=== PATIENT | female | born 1975 | race Caucasian/White ===

== ENCOUNTER 2021-07-02 11:06 | Outpatient (REF) | payer OTHER, SELFPAY ==
[2021-07-02 14:00] LABS: MANUAL DIFF FLAG NO
[2021-07-02 14:10] LABS: Basophils Percent Auto 0.5 % (0-2); Eosinophils Absolute Auto 0.2 X10*3/uL (0.0-0.4); Eosinophils Percent Auto 3.1 % (0-4); Hematocrit 35.5 % (37.0-47.0); Imm Gran Abs Auto 0.01 X10*3/uL (0.00-0.03); Imm Gran Pct Auto 0.2 % (0.0-0.4); Lymphocytes Absolute Auto 1.3 X10*3/uL (1.2-4.9); Lymphocytes Percent Auto 20.8 % (20-40); Mean Corpuscular HGB Conc 33.8 g/dl (31.0-35.0); Mean Corpuscular Hemoglobin 31.2 pg (27.0-33.0); Mean Corpuscular Volume 92.2 fL (80.0-98.0); Mean Platelet Volume 10.6 fL (9.4-12.3); Monocytes Absolute Auto 0.7 X10*3/uL (0.1-1.2); Monocytes Percent Auto 11.3 % (2-11); Neutrophils Absolute Auto 3.9 x10*3/uL (2.0-8.3); Neutrophils Percent Auto 64.1 % (45-73); Platelet Count 201 X10*3/uL (160-400); Red Blood Count 3.85 X10*6/uL (4.20-5.50); White Blood Count 6.1 X10*3/uL (4.8-10.8)
[2021-07-02 14:26] LABS: Monotest Negative (Negative)
[2021-07-02 14:31] LABS: Alanine Aminotransferase 23 U/L (0-31); Alkaline Phosphatase 67 U/L (39-117); Anion Gap 13 (12-20); Aspartate Amino Transferase 24 U/L (5-31); Bilirubin Total 0.4 mg/dL (0.0-1.0); Blood Urea Nitrogen 7 mg/dL (9-16); C Reactive Protein 4.26 mg/dL (< or = 0.50); Calcium 9.3 mg/dL (8.4-10.2); Carbon Dioxide 23 mmol/L (22-29); Chloride 105 mmol/L (96-108); Estimated Glomerular Filt Rate > 60; Glucose Random 79 mg/dL (60-115); Potassium 4.3 mmol/L (3.3-5.1); Sodium 137 mmol/L (135-145); Total Protein 6.8 g/dL (6.5-8.0)
== END 2021-07-02 11:07 | disposition home or self-care (01) ==
LOC: HO.HMGCLDS 11:06
PROVIDERS: PCP Internal Medicine; Visit Provider Internal Medicine
DX: J02.9 Acute pharyngitis, unspecified (principal)
CPT/HCPCS: 36415; 80053; 85025; 86140; 86308

== ENCOUNTER → 2022-04-01 14:45 | Outpatient (REF) | payer OTHER, SELFPAY ==
--- NOTE | 2022-04-01 14:51 | HM_ITS ---
Conclusion: 1. Patient was monitored for total period of 3 days 2. Baseline was normal sinus rhythm with average heart of 77 beats per minute 3. Very rare ectopy noted 4. No significant pauses or bradycardia noted 5. No patient reported events MTDD
== END ==
LOC: HO.CARD 14:45
PROVIDERS: PCP Internal Medicine; Visit Provider Internal Medicine
DX: R00.2 Palpitations (principal)
CPT/HCPCS: 93242

== ENCOUNTER 2022-06-18 07:57 | Outpatient (REF) | payer OTHER, SELFPAY ==
[2022-06-18 08:14] LABS: MANUAL DIFF FLAG NO
[2022-06-18 08:54] LABS: Basophils Percent Auto 0.7 % (0-2); Eosinophils Absolute Auto 0.2 X10*3/uL (0.0-0.4); Eosinophils Percent Auto 3.4 % (0-4); Hematocrit 34.4 % (37.0-47.0); Hemoglobin 11.7 g/dl (12.0-16.0); Imm Gran Abs Auto 0.01 X10*3/uL (0.00-0.03); Imm Gran Pct Auto 0.2 % (0.0-0.4); Lymphocytes Absolute Auto 1.8 X10*3/uL (1.2-4.9); Lymphocytes Percent Auto 32.5 % (20-40); Mean Corpuscular Hemoglobin 30.2 pg (27.0-33.0); Mean Corpuscular Volume 88.9 fL (80.0-98.0); Mean Platelet Volume 10.3 fL (9.4-12.3); Monocytes Absolute Auto 0.5 X10*3/uL (0.1-1.2); Monocytes Percent Auto 8.2 % (2-11); Neutrophils Absolute Auto 3.1 x10*3/uL (2.0-8.3); Platelet Count 200 X10*3/uL (160-400); Red Blood Count 3.87 X10*6/uL (4.20-5.50); Red Cell Distribution Width 13.2 % (11.0-16.0); White Blood Count 5.6 X10*3/uL (4.8-10.8)
[2022-06-18 09:44] LABS: Alanine Aminotransferase 34 U/L (0-31); Albumin Level 4.4 g/dL (3.5-5.0); Alkaline Phosphatase 70 U/L (39-117); Anion Gap 13 (12-20); Aspartate Amino Transferase 25 U/L (5-31); Bilirubin Direct < 0.2 mg/dL (0.0-0.5); Bilirubin Total 0.3 mg/dL (0.0-1.0); Blood Urea Nitrogen 11 mg/dL (9-16); C Reactive Protein 1.09 mg/dL (< or = 0.50); Calcium 10.1 mg/dL (8.4-10.2); Carbon Dioxide 26 mmol/L (22-29); Chloride 103 mmol/L (96-108); Estimated Glomerular Filt Rate > 60; Glucose Random 89 mg/dL (60-115); Potassium 3.9 mmol/L (3.3-5.1); Sodium 138 mmol/L (135-145); T4 Thyroxine 6.2 ug/dL (4.5-12.0); Thyroid Stimulating Hormone 1.62 uIU/mL (0.32-4.0); Total Protein 7.1 g/dL (6.5-8.0)
[2022-06-18 09:48] LABS: Erythrocyte Sedimentation Rate 14 MM/HR (0-20)
[2022-06-19 13:23] LABS: Gliadin Deamidated IgA Ab <1.0 U/mL; Gliadin Deamidated IgG Ab <1.0 U/mL; Transglutaminase Ab IgG <1.0 U/mL; Transglutaminase IgA <1.0 U/mL
[2022-06-20 14:39] LABS: Immunoglobulin A 161 mg/dL (47-310)
[2022-06-21 11:24] LABS: Endomysial IgA Antibody Negative (Negative)
== END 2022-06-18 07:58 | disposition home or self-care (01) ==
LOC: HO.LAB 07:57
PROVIDERS: PCP Internal Medicine; Visit Provider Internal Medicine
DX: R19.7 Diarrhea, unspecified (principal)
CPT/HCPCS: 36415; 80048; 80076; 82784; 84436; 84443; 85025; 85652; 86140; 86231; 86258; 86364

== ENCOUNTER 2022-07-23 10:44 | Day surgery (SDC) | payer OTHER, SELFPAY ==
--- NOTE | 2022-07-22 12:09 | HO.ANESPROP2 ---
Documented by User: Soha Elizondo NP 07/22/22 12:10 HPI - Anesthesia Eval Consult details Narrative: 47yo F for Colonoscopy PMFSH Past Medical History Medical History Asthma GERD (gastroesophageal reflux disease) HTN (hypertension) IBS (irritable bowel syndrome) Kidney calculi Panic attack Surgical History Surgical History Hx of colonoscopy Hx of endoscopy Social History Social History Patient Tobacco Use Status: Current everyday Tobacco user Are you DNR?: No Advance Directives: No Advance Directives Information Provided: Yes Patient : No Meds Allergies Allergy/AdvReac Type Severity Reaction Status Date / Time No Known Allergies Allergy Verified 07/23/22 11:25 Home Medications Medication Instructions Recorded Confirmed Last Taken Type albuterol sulfate 90 mcg/actuation 2 inh inhalation Q4-6H PRN Wheezing 07/22/22 07/23/22 07/21/22 History aerosol inhaler atorvastatin 10 mg tablet 1 tab PO DAILY 07/22/22 07/22/22 07/22/22 History fluticasone propionate 100 2 inh inhalation BID 07/22/22 07/23/22 07/22/22 History mcg/actuation blister powder for inhalation (Flovent Diskus) hydrochlorothiazide 25 mg tablet 1 tab PO DAILY 07/22/22 07/22/22 07/20/22 History losartan 100 mg tablet 1 tab PO DAILY 07/22/22 07/22/22 07/22/22 History omeprazole 40 mg capsule,delayed 1 cap PO DAILY 07/22/22 07/22/22 07/22/22 History release propranolol 120 mg capsule,24 1 cap PO DAILY 07/22/22 07/22/22 07/22/22 History hr,extended release sertraline 50 mg tablet 1 tab PO DAILY 07/22/22 07/22/22 07/22/22 History Exam Exam Date and Time: July 22, 2022 1209 Pertinent Lab Results Pertinent Lab Results: Laboratory Tests 06/18/22 06/18/22 08:13 08:13 WBC 5.6 Hgb 11.7 L Hct 34.4 L Plt Count 200 Sodium 138 Potassium 3.9 Chloride 103 Carbon Dioxide 26 BUN 11 Creatinine 0.81 Narrative Narrative: 3 Day Holter 03/2022 Conclusion: 1. Patient was monitored for total period of 3 days 2. Baseline was normal sinus rhythm with average heart of 77 beats per minute 3. Very rare ectopy noted 4. No significant pauses or bradycardia noted 5. No patient reported events? Assessment and Plan Assessment Anesthesia Assessment: Chart Reviewed Documented by User: Sierra Ornelas MD 07/23/22 12:47 PMF Past Medical History Medical History Asthma GERD (gastroesophageal reflux disease) HTN (hypertension) IBS (irritable bowel syndrome) Kidney calculi Panic attack Functional capacity: independent ambulation Patient : No Family History Family history of problems with anesthesia: No Surgical History Surgical History Hx of colonoscopy Hx of endoscopy History of Problems with Anesthesia: No Social History Social History Patient Tobacco Use Status: Current everyday Tobacco user Are you DNR?: No Advance Directives: No Advance Directives Information Provided: Yes Patient : No Meds Allergies Allergy/AdvReac Type Severity Reaction Status Date / Time No Known Allergies Allergy Verified 07/23/22 11:25 Home Medications Medication Instructions Recorded Confirmed Last Taken Type albuterol sulfate 90 mcg/actuation 2 inh inhalation Q4-6H PRN Wheezing 07/22/22 07/23/22 07/21/22 History aerosol inhaler atorvastatin 10 mg tablet 1 tab PO DAILY 07/22/22 07/22/22 07/22/22 History fluticasone propionate 100 2 inh inhalation BID 07/22/22 07/23/22 07/22/22 History mcg/actuation blister powder for inhalation (Flovent Diskus) hydrochlorothiazide 25 mg tablet 1 tab PO DAILY 07/22/22 07/22/22 07/20/22 History losartan 100 mg tablet 1 tab PO DAILY 07/22/22 07/22/22 07/22/22 History omeprazole 40 mg capsule,delayed 1 cap PO DAILY 07/22/22 07/22/22 07/22/22 History release propranolol 120 mg capsule,24 1 cap PO DAILY 07/22/22 07/22/22 07/22/22 History hr,extended release sertraline 50 mg tablet 1 tab PO DAILY 07/22/22 07/22/22 07/22/22 History Exam Airway Mallampati Class: II TM Dist: >3cm Neck ROM: Full Heart: RRR Lungs: CTA Assessment and Plan Final Anesthetic Review Family History of Problems with Anesthesia: No History of Problems with Anesthesia: No ASA Class: II Final Preanesthetic Review: No Changes in Pt Med Stat, Meds/Allgs Chart Reviewed, Consent Obtained/Reviewed and Anes Risks/Benef Reviewed Patient Risk: Low Procedure Risk: Low Anesthetic Plan Anesthetic Plan: MAC: Disposition: Standard PACU
[2022-07-23 07:11] VITALS: BMI 30.9
[2022-07-23 11:08] VITALS: BP 153/62; PULSE 78; RESP 20; TEMP 35.8; O2SAT 97
[2022-07-23] MEDS: Lactated Ringers 1,000 ML 100 ML IVCONT (11:18)
[2022-07-23 11:20] LABS: UPreg QC Valid YES; Urine Pregnancy NEGATIVE (NEGATIVE)
--- NOTE | 2022-07-23 13:02 | PM.OP ---
Brief Operative Note Date of Service: 07/23/22 Pre-op diagnosis: Diarrhea Post-op diagnosis: other (Polyp, R/O Microscopic colitis) Procedure: Colonoscopy to the cecum and TI with biopsies Surgeon: Rao Jaeger Anesthesia: MAC Was an Conservation Planner used for this Procedure?: No Estimated blood loss (mL): 2.0 Pathology: other (A. Terminal ileum B. Ascending colon C. Proximal ascending colon polyp D. Descending colon) Condition: stable Disposition: PACU
[2022-07-23 13:07] VITALS: BP 113/65; PULSE 82; RESP 16; TEMP 36.7; O2SAT 98
[2022-07-23] MEDS: Acetaminophen 325 MG TABLET 650 MG PO (13:10)
--- NOTE | 2022-07-23 13:10 | HO.POSTANES ---
Post Anesthesia Evaluation Post Anesthesia Evaluation Vital Signs: Vital Signs Temp Pulse Resp BP Pulse Ox O2 Del Method 07/23/22 13:07 98.1 F 82 16 113/65 98 Room Air 07/23/22 11:08 96.4 F L 78 20 153/62 H 97 Room Air Anesthesia: Monitored Mental Status: Awake Pain Control: Satisfactory Nausea/Vomiting: None Hydration: Adequate Anesthesia-Related Issues: No Anes. Related Issues
[2022-07-23 13:36] VITALS: BP 153/83; PULSE 73; RESP 18; TEMP 36.7; O2SAT 96
--- NOTE | 2022-07-24 06:07 | OP_ITS ---
SURGEON: Rao Jaeger MD INDICATIONS: The patient presents for evaluation of chronic diarrhea. Full consent has been obtained from her for this, including risks of bleeding and perforation. PREOPERATIVE DIAGNOSIS: Chronic diarrhea. POSTOPERATIVE DIAGNOSIS: PROCEDURE PERFORMED: Colonoscopy to the cecum and terminal ileum with biopsies and biopsy and removal of polyp. ESTIMATED BLOOD LOSS: COMPLICATIONS: ANESTHESIA: Monitored anesthesia care. ASSISTANTS: SPECIMENS: POSTOPERATIVE DIAGNOSES: Chronic diarrhea, colon polyp, mild diverticulosis, small internal hemorrhoids, and submucosal lesion in the proximal ascending colon. DESCRIPTION OF PROCEDURE: The patient was placed in the left lateral decubitus position. The digital rectal exam revealed no abnormalities. The Olympus video pediatric colonoscope was entered into the rectum and advanced easily to the cecum. Once in the cecum I did identify normal-appearing cecal pouch with appendiceal orifice and a normal-appearing ileocecal valve. The terminal ileum was cannulated and appeared normal. Biopsies were obtained. There was no sign of any Crohn's disease nor other inflammation. The scope was withdrawn back in the colon. The entire cecum and ileocecal valve appeared normal. The scope was slowly withdrawn assessing all mucosal surfaces carefully. Preparation was excellent. In the very proximal ascending colon, opposite to the ileocecal valve, was an approximately 2 cm submucosal lesion. The overlying mucosa was very normal. It was somewhat mobile, but somewhat firm. It was not definitively a lipoma. There was no pillow sign when probed with a biopsy forceps. I did not bother obtaining biopsies given the very normal-appearing mucosa. In the mid-ascending colon was an approximately 5 mm polyp, which was biopsied and completely removed with a cold biopsy forceps. I did not visualize any other polyps, colitis, nor angiodysplasia. Random biopsies were obtained in the ascending and descending colon as well. There were occasional diverticulae noted in the sigmoid colon. In the rectum, scope was retroflexed visualizing some small internal hemorrhoids, but no other pathology. The rectal mucosa appeared normal. The scope was straightened and withdrawn from the patient. She tolerated the procedure well and was returned to the recovery area in stable condition. IMPRESSION: 1. Small colon polyp. 2. Rule out microscopic colitis. 3. Submucosal lesion in the proximal ascending colon. 4. Mild diverticulosis. 5. Internal hemorrhoids. PLAN: The results of the biopsies will be checked. If the polyp is a tubular adenoma, I would recommend a followup in 5 years. If it is only hyperplastic, I would recommend a followup colonoscopy in 10 years. She has been instructed to use Imodium and dicyclomine that she already has at home to help with her diarrhea as I do suspect at this point, we are dealing with some irritable bowel syndrome given the otherwise normal appearance of the colon. She has recently had laboratories including negative laboratories for celiac disease. She was advised not to use any aspirin or NSAIDs for 1 week. In regard to the submucosa lesion in the proximal ascending colon, I shall try to look at photographs from her last colonoscopy about 5 years ago to see if that same lesion is there. If that area was not photographed or the lesion was not there we may want to proceed with further workup with a CT scan for further assessment of this lesion. She will be seen in followup in the office as well. MD JOHANA Gonzalez/ILEANA / [id number] MTDD
== END 2022-07-23 13:47 | disposition home or self-care (01) ==
PROVIDERS: Nurse Practitioner; PCP Internal Medicine; Visit Provider Internal Medicine
PROC: 0DJD8ZZ Inspection of Lower Intestinal Tract, Via Natural or Artificial Opening Endoscopic (ICD-10-PCS; CPT 45378; principal; 2022-07-23 12:00)
DX: K52.9 Noninfective gastroenteritis and colitis, unspecified (principal); D12.2 Benign neoplasm of ascending colon; K57.30 Diverticulosis of large intestine without perforation or abscess without bleeding; K64.8 Other hemorrhoids; K63.89 Other specified diseases of intestine; K21.9 Gastro-esophageal reflux disease without esophagitis; I10 Essential (primary) hypertension; J45.909 Unspecified asthma, uncomplicated; Z79.51 Long term (current) use of inhaled steroids; Z79.899 Other long term (current) drug therapy
CPT/HCPCS: 45380; 81025; 88305

== ENCOUNTER 2023-01-19 08:33 | Outpatient (REF) | payer OTHER, SELFPAY ==
--- NOTE | ~2023-01-19 | CT_ITS ---
EXAMINATION: CT ABDOMEN AND PELVIS WITH CONTRAST CLINICAL INFORMATION: Diarrhea. COMPARISON: CT abdomen and pelvis dated 03/25/2017. TECHNIQUE: Multidetector volumetric images were obtained from the superior aspect of the liver through the pubic symphysis following administration 85 mL of Omnipaque 350 intravenous contrast. Sagittal and coronal reformatted images were obtained on the technologist's workstation. Oral contrast: No This CT examination was performed using dose optimization techniques as appropriate, variously including the following: *Automated exposure control *Adjustment of mA and/or kV according to patient size (this includes techniques or standardized protocols for targeted exams where dose is matched to indication/reason for exam; i.e. extremities or head) *Use of iterative reconstruction technique DLP: 524 mGy-cm FINDINGS: LUNG BASES: The visualized lung bases are unremarkable. LIVER, GALLBLADDER, AND BILIARY TREE: The liver is normal in size, shape, and generally diminished in attenuation. No focal hepatic lesion or biliary ductal dilatation is present. The gallbladder is unremarkable with no evidence of radiopaque gallstones, gallbladder wall thickening, or obvious pericholecystic inflammatory changes. PANCREAS: Unremarkable. SPLEEN: Unremarkable. ADRENAL GLANDS: Unremarkable. KIDNEYS AND URETERS: The kidneys are normal in size, shape, and attenuation. No hydronephrosis, hydroureter, or calculi seen. No perinephric stranding. BLADDER: Unremarkable. GASTROINTESTINAL TRACT: The small and large bowel are unremarkable. The appendix is unremarkable. ABDOMINAL WALL: There is a small fat-containing umbilical hernia. LYMPH NODES: Normal. VASCULAR: There is mild aortoiliac atherosclerotic calcification. No abdominal aortic aneurysm or dissection is seen. PELVIC VISCERA: The uterus and left ovary are unremarkable. The right ovary contains a 3.6 cm benign, simple cyst, with postcontrast Hounsfield value of 16.7 units (3:62). OSSEOUS STRUCTURES: Unremarkable. CT/CT abdomen pelvis w IV con IMPRESSION: 1. There is hepatic steatosis. 2. A 3.6 cm benign, simple right ovarian cyst is seen, for which no imaging follow-up is recommended. 3. There is a small fat-containing umbilical hernia. Fleischner guidelines were followed.
== END 2023-01-19 08:34 | disposition home or self-care (01) ==
LOC: HO.CT 08:33
PROVIDERS: PCP Internal Medicine; Visit Provider Internal Medicine
DX: R19.7 Diarrhea, unspecified (principal); K63.89 Other specified diseases of intestine
CPT/HCPCS: 74177; Q9967

== ENCOUNTER → 2023-09-03 15:08 | Outpatient (BNVA) | payer OTHER, SELFPAY | PROVIDERS: PCP Internal Medicine; Visit Provider Internal Medicine | DX: R00.0 Tachycardia, unspecified (principal); J44.9 Chronic obstructive pulmonary disease, unspecified | CPT/HCPCS: 93005 ==

== ENCOUNTER 2023-09-03 15:09 | Outpatient (AMB) | payer OTHER, SELFPAY ==
--- NOTE | 2023-09-03 15:14 | A.OFFVIS_ITS ---
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 Intake Note: NPV w/ EKG Commercial Account Manager Required: No Accompanied by: Self / Same As Patient Allergies No Known Allergies Allergy (Verified 09/03/23 15:17) Medication List - Last Reconciled 09/03/23 by Bay Raymond MD albuterol sulfate 90 mcg/actuation 2 inhalations inhalation Q4-6H PRN atorvastatin 10 mg PO DAILY budesonide 180 mcg/actuation (Pulmicort Flexhaler) 2 inhalations inhalation BID diltiazem HCl ER 180 mg PO DAILY fluticasone propionate 100 mcg/actuation (Flovent Diskus) 2 inhalations inhalation BID hydrochlorothiazide 25 mg PO DAILY losartan 100 mg PO DAILY omeprazole 40 mg PO DAILY propranolol ER 120 mg PO DAILY sertraline 50 mg PO DAILY HPI HPI Comments History of Present Illness Details Kimi is here for consultation regarding tachycardia. She has COPD. Recently admitted to [facility] with shortness of breath. Diagnosed with acute hypoxic respiratory failure/COPD exacerbation and influenza. She was in the hospital for few days, requiring supplemental oxygen as well as steroids. Then discharged home. She states that after that time, she is noticing her pulse rate going up a lot. Even when she is sitting in a couch, her heart rate is almost 150/Min intermittently. She can feel the palpitations. Shortness of breath is still present. No anginal-type complaints. No known coronary disease or any cardiac issues. She had some oral steroids after discharge but nothing at this time. On inhalers/nebulizers. [facility] Medical History (Updated 09/03/23 @ 15:38 by Bay Raymond MD) COPD (chronic obstructive pulmonary disease) IBS (irritable bowel syndrome) Kidney calculi Panic attack GERD (gastroesophageal reflux disease) Asthma HTN (hypertension) Surgical History Hx of endoscopy Hx of colonoscopy Family History (Updated 09/03/23 @ 15:35 by Bay Raymond MD) Mother Vascular disease Social History Patient Tobacco Use Status: Current everyday Tobacco user Review of Systems Const Denies chills, Denies daytime sleepiness, Denies fatigue, Denies fever(s), Denies frequent falls, Denies night sweats, Denies snoring, Denies weakness, Denies weight gain and Denies weight loss Eyes Denies loss of vision ENT Denies dizziness and Denies hearing loss Card Denies chest pain, Denies chest pain with activity, Denies syncope, Denies edema, Denies claudication, Denies leg edema, Denies lightheadedness, Denies palpitations, Denies dyspnea, Denies dyspnea on exertion and Denies orthopnea Resp Denies cough, Denies excessive phlegm production, Denies dyspnea, Denies dyspnea on exertion, Denies snoring and Denies wheezing GI Denies abdominal pain, Denies hematochezia, Denies change in bowel habits, Denies change in stool character, Denies heartburn, Denies nausea and Denies vomiting Denies hematuria, Denies urinary frequency and Denies dysuria Musc Denies arthralgias, Denies muscle weakness, Denies numbness and Denies tingling Skin/Breast Denies nail changes and Denies rash Neuro Denies Abnormal speech present, Denies dizziness, Denies syncope, Denies frequent falls, Denies loss of vision, Denies memory loss, Denies numbness, Denies tingling and Denies weakness Psych Denies depression and Denies memory loss Endo Denies fatigue and Denies palpitations Aller/Immun Denies wheezing Physical Exam Vital Signs: Last Vital Signs Pulse 83 09/03/23 15:15 BP 96/56 L 09/03/23 15:15 BMI result Body Mass Index 28.6 Const General: comfortable and no acute distress Orientation/consciousness: patient oriented x3 HEENT Other: Unremarkable Head: Yes normal to inspection Neck Neck: Yes normal visual inspection Chest Chest palpation & inspection: normal inspection of the chest Resp Auscultation: wheezes and diminished lung sounds Cardio Palpation: normal PMI Heart sounds: S1 normal heart sound present, S2 normal heart sound present, no gallops, no murmurs and no rubs GI Palpation (GI): Soft to palpation Back/Spine/Pelvis Other: unremarkable Skin General skin exam: no rashes or lesions noted Neuro General: patient oriented x3 Speech: No Abnormal speech present Extrem General: Yes normal to inspection Psych Mental Status: mental status grossly normal Office Procedures EKG Details: EKG today shows sinus rhythm at 80/Min; right atrial enlargement; nonspecific ST-T changes. [id number], Complete Assessment & Plan Assessment & Plan (1) Tachycardia: Code(s): R00.0 - Tachycardia, unspecified (2) COPD (chronic obstructive pulmonary disease): Code(s): J44.9 - Chronic obstructive pulmonary disease, unspecified Plan Suspect that she may be having compensated very sinus tachycardia in response to recent COPD exacerbation/respiratory failure/flu. Additionally, nebulizers, steroids may play a role in sinus tachycardia. We can also evaluate for any atrial arrhythmias like atrial tachycardia or flutter/fibrillation but seems less likely. We will get a Holter monitor. Echocardiogram for cardiac function. It appears that her primary care physician has started her on diltiazem. Blood pressure is somewhat lowish. May need med adjustments in the future. Will follow-up after testing. Patient agrees with the current plan. Orders: Orders CA echo transthoracic complete Today J44.9 - Chronic obstructive pulmonary disease, unspecified, R00.0 - Tachycardia, unspecified ECG 7 day holter monitor Today R00.0 - Tachycardia, unspecified, R00.2 - Palpitations Coding Level of Care Code New Pt Level 4 (84157) Diagnoses Tachycardia R00.0 COPD (chronic obstructive pulmonary disease) J44.9 CPT Codes EKG - CPT: 11570-[id number], Complete ([id number])
[2023-09-03 15:15] VITALS: BP 96/56; PULSE 83; BMI 28.6
== END 2023-09-03 15:51 | disposition home or self-care (01) ==
PROVIDERS: PCP Internal Medicine; Visit Provider Internal Medicine
DX: R00.0 Tachycardia, unspecified (principal); J44.9 Chronic obstructive pulmonary disease, unspecified
CPT/HCPCS: 93010; 99204

== ENCOUNTER → 2023-10-01 08:57 | Outpatient (REF) | payer OTHER, SELFPAY ==
--- NOTE | 2023-10-01 09:01 | CA_ITS ---
Transthoracic Echocardiogram Patient (Last, First, Middle): Kimi Velasquez, Gender: Female Date of : 1975 Age: 48 Procedure Date: 10/01/2023 Procedure Type: Transthoracic Echocardiogram Location: OP Height: 165.1 cm Weight: 79.38 kg BSA: 1.87 m2 Heart Rate: bpm BP: 110 / 68 mmHg Blocking Machine Operator: TO Referring MD: Bay Raymond MD Symptoms: R00.0 - Tachycardia, unspecified Study Quality: Adequate ECG Rhythm: Sinus Conclusions: - The left ventricular systolic function is normal. The calculated ejection fraction is 60% by biplane method. - No obvious valvular pathology seen on this study. - Small plaque is seen in the sino tubular ridge. Findings Left Ventricle Normal left ventricular cavity size. The left ventricular systolic function is normal. The calculated ejection fraction is 60% by biplane method. There is no evidence of regional wall motion abnormalities. Diastolic function is normal for age. Mild focal hypertrophy of the basal septum. LV peak GLS 19.9%. Right Ventricle Normal right ventricular cavity size and systolic function. Atria Both atria are normal in size. Aortic Valve There is a normal trileaflet aortic valve. There is no aortic valve stenosis. There is no aortic valve regurgitation. Mitral Valve The mitral valve appears normal. There is no mitral valve regurgitation. There is no mitral valve stenosis. Pulmonic Valve The pulmonic valve is likely normal. Tricuspid Valve Normal tricuspid valve structure. There is trace tricuspid valve regurgitation. There is no evidence of pulmonary hypertension. Great Vessels The asc aorta is normal in size. Small plaque is seen in the sino tubular ridge. Venous The inferior vena cava is normal in size and collapses greater than 50% with inspiration. Pericardium/Pleural There is no evidence of pericardial effusion. Prior Study Comparison No significant change compared to prior study dated: 11/11/2018. Recommendations, Care & Conclusions No obvious valvular pathology seen on this study. Measurements 2D Linear Measurements IVSd: 1.44 0.6-0.9/0.6-1.0 cm LVIDd: 3.94 3.9-5.3/4.2-5.9 cm LVIDd Index: 2.11 2.4-3.2/2.2-3.1 cm/m2 LVIDs: 2.46 2.0-3.6 cm LVPWd: 0.93 0.7-1.1 cm LA Diam: 3.60 2.7-3.8/3.0-4.0 cm LAIDs Index: 1.93 1.5-2.3 cm/m2 LV Mass: 197.80 67-162/88-224 g LV Mass Index: 105.78 43-95/49-115 g/m2 LVOT Diam: 2.10 3.0+(-)1.3 cm 2D Systolic Function EF 4C: 59.70 >55% EF 2C: 59.60 >55% EF BiP: 59.50 >55% Mitral Valve MV Pk E: 0.95 MV PK A: 0.55 MV Decel Time: 186.00 E/A: 1.70 E'Lateral: 10.20 E'Medial: 6.42 E/E' Med: 14.80 E/E' Lat: 9.30 PHT: 54.00 MVA PHT: 4.07 Decel Maverick: 5.12 Aortic Valve AoV Pk Aries: 1.41 AoV Mn Aries: 0.91 AoV VTI: 0.29 AoV Pk Grad: 8.00 Aov Mn Grad: 4.00 GREGG Cont.VTI: 2.62 LVOT LVOT Pk Aries: 1.02 LVOT Mn Aries: 0.68 LVOT VTI: 0.22 LVOT Pk Grad: 4.00 LVOT Mn Grad: 2.00 LVOT Diam: 2.10 LVOT Area: 3.46 Diastolic Function MV Pk E: 0.95 MV Pk A: 0.55 E/A: 1.70 E'Medial: 6.42 E/E' Med: 14.80 E' Laterial: 10.20 E/E' Lat: 9.30 Right Ventricle TAPSE (mm): 22.70 TVS' Aries: 10.30 Tricuspid Valve TR Pk Aries: 1.91 TR Pk Grad: 15.00 RA Press: 3.00 RVSP: 18.00 Great Vessels Aorta Sinus of Valsalva: 3.01 2.0-3.5 cm Ao Asc: 2.90 2.1-3.4 cm Updated in Other Vendor System with Status of Final Bay Raymond MD electronically signed on 10/03/2023 12:00:29 PM with status of Final
--- NOTE | 2023-10-01 09:01 | HM_ITS ---
Conclusion: 1. Patient was monitored for total period of 10 days 2. Baseline was normal sinus rhythm with average heart of 81 beats per minute 3. No significant arrhythmias or pauses noted 4. Patient marked the counter 1 time in correlation with sinus rhythm with no reported symptoms MTDD
== END ==
LOC: HO.CARD 08:57
PROVIDERS: PCP Internal Medicine; Visit Provider Internal Medicine
DX: R00.2 Palpitations (principal); R00.0 Tachycardia, unspecified; J44.9 Chronic obstructive pulmonary disease, unspecified
CPT/HCPCS: 93242; 93306; 93356

== ENCOUNTER → 2023-10-01 09:01 | Outpatient (BNV) | payer OTHER, SELFPAY | PROVIDERS: PCP Internal Medicine; Visit Provider Internal Medicine | DX: R00.2 Palpitations (principal) | CPT/HCPCS: 93248; 93306; 93356 ==

== ENCOUNTER 2024-07-26 13:49 | Outpatient (AMB) | payer OTHER, SELFPAY ==
--- NOTE | 2024-07-26 13:56 | MHC.PC.OV ---
Intake Visit Reasons: follow up Allergies No Known Allergies Allergy (Verified 09/03/23 15:17) PFSH Medical History (Updated 09/03/23 @ 15:38 by Bay Raymond MD) COPD (chronic obstructive pulmonary disease) IBS (irritable bowel syndrome) Kidney calculi Panic attack GERD (gastroesophageal reflux disease) Asthma HTN (hypertension) Surgical History Hx of endoscopy Hx of colonoscopy Family History (Updated 09/03/23 @ 15:35 by Bay Raymond MD) Mother Vascular disease Social History Patient Tobacco Use Status: Current everyday Tobacco user Physical exam (Primary Care) Tobacco/Smoking Status: Tobacco use Status Patient Tobacco Use Status Current everyday Tobacco 07/23/22 13:01 Coding
--- NOTE | 2024-07-26 14:00 | A.OFFPC_ITS ---
Vital Signs 07/26/24 14:09 Height 5 ft 5 in Weight 172 lb BMI 28.6 BP 115/70 Pulse 72 Pulse Source Pulse Oximeter Temp 97.1 F Pulse Oximetry (%) 97 Intake Visit Reasons: follow up Intake Note: here for follow up no other issues Allergies bee venom protein (honey bee) Allergy (Verified 07/26/24 14:48) Anaphylaxis watermelon Allergy (Verified 07/26/24 14:48) Unknown Medication List - Last Reconciled 07/26/24 by Nikunj Mendez MD albuterol sulfate 90 mcg/actuation 2 inhalations inhalation Q4-6H PRN atorvastatin 10 mg PO DAILY budesonide 180 mcg/actuation (Pulmicort Flexhaler) 2 inhalations inhalation BID diltiazem HCl ER 180 mg PO DAILY ergocalciferol (vitamin D2) (Vitamin D2) 1,250 mcg PO QWEEK fluticasone propionate 100 mcg/actuation (Flovent Diskus) 2 inhalations inhalation BID hydrochlorothiazide 25 mg PO DAILY losartan 100 mg PO DAILY omeprazole 40 mg PO DAILY propranolol ER 120 mg PO DAILY sertraline 50 mg PO DAILY PFSH Medical History (Updated 09/03/23 @ 15:38 by Bay Raymond MD) COPD (chronic obstructive pulmonary disease) IBS (irritable bowel syndrome) Kidney calculi Panic attack GERD (gastroesophageal reflux disease) Asthma HTN (hypertension) Surgical History Hx of endoscopy Hx of colonoscopy Family History (Updated 09/03/23 @ 15:35 by Bay Raymond MD) Mother Vascular disease Social History Patient Tobacco Use Status: Current everyday Tobacco user Physical exam (Primary Care) Vital Signs: Last Vital Signs Temp 97.1 F 07/26/24 14:09 Pulse 72 07/26/24 14:09 BP 115/70 07/26/24 14:09 Pulse Ox 97 07/26/24 14:09 BMI result Body Mass Index 28.6 Tobacco/Smoking Status: Tobacco use Status Patient Tobacco Use Status Current everyday Tobacco 07/26/24 14:12 Coding Level of Care Code New Pt Level 4 (33392) Complex EM visit Add On G2211 Diagnoses Swelling of submandibular region R22.0; R22.1 Assessment & Plan Assessment & Plan (1) Swelling of submandibular region: Code(s): R22.0 - Localized swelling, mass and lump, head; R22.1 - Localized swelling, mass and lump, neck Plan: US neck ordered. Most likely a salivary gland swelling. Plan History of Present Illness The patient is a 49-year-old female presenting with a lump beneath her neck. She noticed this lump approximately six weeks ago. The patient reports that the lump has not shown any changes in size, nor has it been painful. She has not experienced difficulties with chewing or a particularly dry mouth requiring increased fluid intake. The patient denies any associated symptoms such as fever or unintentional weight loss. She has not undergone any previous medical ev aluation or treatment for this issue. Social History - Employment: Self-employed - Tobacco Use: Smokes half a pack of cigarettes per day Review of Systems - Oral Cavity: Denies dry mouth. - Constitutional: Denies fever, denies unintentional weight loss. - Respiratory: Denies difficulties with chewing. Physical Exam General: Appearance normal, both eyes and all related structures Nutritional Appearance: Well nourished Orientation/consciousness: Patient oriented x3 Limitations: No limitations Head: Normal to inspection Neck: Swelling noted, possible salivary gland swelling. Left jaw: 3 cm soft swelling, indistinct from the skin. Chest: Normal palpation of entire chest wall Respiratory: Normal respiratory effort Neurology: Patient oriented x3 Results Plan - Proceed with an ultrasound of the neck to further assess the characteristics and origin of the swelling. - Encourage cessation of smoking as a long-term health consideration. Patient was informed and verbally consented to the use of an ambient scribe for clinic note documentation during this visit. Discussion Notes I discussed with the patient the likely non-malignant nature of the neck swelling, as there was no hardness felt during the examination and it does not appear to be a lymph node. I explained that an ultrasound would be beneficial in providing a clearer understanding of the swelling's nature. I reassured the patient that there seemed to be no immediate cause for concern regarding malignancy. The importance of following up within a week if no communication is received regarding the ultrasound was emphasized. Additionally, I encouraged her to consider quitting smoking for her overall health benefit. Patient Instructions - Arrange for an ultrasound of the neck as discussed. - If you have not heard about the ultrasound scheduling in a week, please contact our office. - Consider smoking cessation for improved health outcomes. Orders: Orders US soft tiss head and/or neck Today R22.0 - Localized swelling, mass and lump, head, R22.1 - Localized swelling, mass and lump, neck
[2024-07-26 14:09] VITALS: BP 115/70; PULSE 72; TEMP 36.2; O2SAT 97; BMI 28.6
== END 2024-07-26 14:25 | disposition home or self-care (01) ==
LOC: HO.HMCSH 13:49
PROVIDERS: PCP Internal Medicine; Visit Provider Internal Medicine
DX: R22.0 Localized swelling, mass and lump, head (principal); R22.1 Localized swelling, mass and lump, neck

== ENCOUNTER 2024-07-28 13:40 | Outpatient (REF) | payer OTHER, SELFPAY ==
--- NOTE | ~2024-07-28 | US_ITS ---
EXAMINATION: US SOFT TISSUE HEAD AND NECK CLINICAL INFORMATION: Swelling of the submandibular region.. COMPARISON: None available. TECHNIQUE: Linear transducer deng-scale and color Doppler examination with attention to the region of concern in the neck. . FINDINGS: There are few scattered, nonspecific prominent less than 2.2 cm lymph nodes with a fatty hilum in the submandibular regions. No gross fluid collections.. US/US soft tiss head and/or neck IMPRESSION: Prominent submandibular lymph nodes, the largest measures 2.2 cm on the right side.. Electronically signed by: Esequiel Bazan MD 07/28/2024 02:23 PM WI[facility]
== END 2024-07-28 13:41 | disposition home or self-care (01) ==
LOC: HO.HMGCX 13:40
PROVIDERS: PCP Internal Medicine; Visit Provider Internal Medicine
DX: R22.0 Localized swelling, mass and lump, head (principal); R22.1 Localized swelling, mass and lump, neck
CPT/HCPCS: 76536

== ENCOUNTER → 2024-07-28 13:45 | Outpatient (BNV) | payer OTHER, SELFPAY | PROVIDERS: PCP Internal Medicine; Visit Provider Radiology Diagnostic Radiology | DX: R59.0 Localized enlarged lymph nodes (principal) | CPT/HCPCS: 76536 ==

== ENCOUNTER 2024-11-23 10:22 | Day surgery (SDC) | payer OTHER, SELFPAY ==
[2024-11-21 10:08] VITALS: BMI 28.1
--- NOTE | 2024-11-22 09:34 | P.CONAN_ITS ---
Documented by User: Soha Elizondo NP 11/22/24 09:38 HPI - Anesthesia Eval Consult details Narrative: 49yo F for Upper Endoscopy PMFSH Active Problems Active Problems: All Active Problems Tachycardia (Acute) COPD (chronic obstructive pulmonary disease) (Acute) Past Medical History Medical History Tachyarrhythmia COPD (chronic obstructive pulmonary disease) IBS (irritable bowel syndrome) Kidney calculi Panic attack GERD (gastroesophageal reflux disease) Asthma HTN (hypertension) Family History Family History (Updated 09/03/23 @ 15:35 by Bay Raymond MD) Mother Vascular disease Family history of problems with anesthesia: No Surgical History Surgical History Hx of wisdom tooth extraction History of ear surgery Hx of endoscopy Hx of colonoscopy (~07/24/22) History of Problems with Anesthesia: No Social History Social History (Updated 11/21/24 @ 10:10 by Sandy Asher RN) Household Members: Family Are you a primary ambulatory care coordinator to a significant other at home: No Do you presently have visiting nurse or other home services: No Patient Tobacco Use Status: Current everyday Tobacco user Cigarettes Per Day: 20 Use of substances other than those prescribed or required for medical reasons: No Have you been hit, kicked, punched, or otherwise hurt by someone within the past year? If so, by whom?: No Are you DNR?: No Advance Directives: No Advance Directives Information Provided: Yes Patient : No (UCG pending) Poor oral hygiene: No Meds Allergies Allergy/AdvReac Type Severity Reaction Status Date / Time bee venom protein (honey bee) Allergy Anaphylaxis Verified 07/26/24 14:48 watermelon Allergy Unknown Verified 07/26/24 14:48 Home Medications ?Medication ?Instructions ?Recorded ?Confirmed ?Last Taken ?Type fluticasone propionate 100 2 inh inhalation BID 07/22/22 07/26/24 07/22/22 History mcg/actuation blister powder for inhalation (Flovent Diskus) budesonide 180 mcg/actuation 2 inh inhalation BID 09/03/23 07/26/24 Unknown History breath activated powder inhaler (Pulmicort Flexhaler) hydrochlorothiazide 25 mg tablet 25 mg PO DAILY 09/03/23 07/26/24 Unknown History sertraline 50 mg tablet 50 mg PO DAILY 09/03/23 07/26/24 Unknown History Exam Height,Weight and Vital Signs: Height 5 ft 5 in Weight 76.657 kg Narrative Narrative: ECHO 2023 Conclusions: - The left ventricular systolic function is normal. The calculated ejection fraction is 60% by biplane method. - No obvious valvular pathology seen on this study. - Small plaque is seen in the sino tubular ridge. Holter 2023 1. Patient was monitored for total period of 10 days 2. Baseline was normal sinus rhythm with average heart of 81 beats per minute 3. No significant arrhythmias or pauses noted 4. Patient marked the counter 1 time in correlation with sinus rhythm with no reported symptoms Assessment and Plan Assessment Anesthesia Assessment: Chart Reviewed Final Anesthetic Review Family History of Problems with Anesthesia: No History of Problems with Anesthesia: No Documented by User: Kojo Long MD 11/23/24 11:54 PMFSH Past Medical History Medical History Tachyarrhythmia COPD (chronic obstructive pulmonary disease) IBS (irritable bowel syndrome) Kidney calculi Panic attack GERD (gastroesophageal reflux disease) Asthma HTN (hypertension) Patient : No Family History Family History (Updated 09/03/23 @ 15:35 by Bay Raymond MD) Mother Vascular disease Surgical History Surgical History Hx of wisdom tooth extraction History of ear surgery Hx of endoscopy Hx of colonoscopy (~07/24/22) Social History Social History (Updated 11/21/24 @ 10:10 by Sandy Asher RN) Household Members: Family Are you a primary ambulatory care coordinator to a significant other at home: No Do you presently have visiting nurse or other home services: No Patient Tobacco Use Status: Current everyday Tobacco user Cigarettes Per Day: 20 Use of substances other than those prescribed or required for medical reasons: No Have you been hit, kicked, punched, or otherwise hurt by someone within the past year? If so, by whom?: No Are you DNR?: No Advance Directives: No Advance Directives Information Provided: Yes Patient : No (UCG pending) Poor oral hygiene: No Meds Allergies Allergy/AdvReac Type Severity Reaction Status Date / Time bee venom protein (honey bee) Allergy Anaphylaxis Verified 07/26/24 14:48 watermelon Allergy Unknown Verified 07/26/24 14:48 Home Medications ?Medication ?Instructions ?Recorded ?Confirmed ?Last Taken ?Type fluticasone propionate 100 2 inh inhalation BID 07/22/22 07/26/24 07/22/22 History mcg/actuation blister powder for inhalation (Flovent Diskus) budesonide 180 mcg/actuation 2 inh inhalation BID 09/03/23 07/26/24 Unknown History breath activated powder inhaler (Pulmicort Flexhaler) hydrochlorothiazide 25 mg tablet 25 mg PO DAILY 09/03/23 07/26/24 Unknown History sertraline 50 mg tablet 50 mg PO DAILY 09/03/23 07/26/24 Unknown History Exam Airway Mallampati Class: II TM Dist: <=3cm Neck ROM: Full Loose/Missing/Broken Teeth: No Heart: ok Lungs: ok Assessment and Plan Assessment Anesthesia Assessment: Anesthesia Plan Discussed Final Anesthetic Review NPO: Yes ASA Class: II Final Preanesthetic Review: No Changes in Pt Med Stat, Meds/Allgs Chart Reviewed, Consent Obtained/Reviewed and Anes Risks/Benef Reviewed Patient Risk: Low Procedure Risk: Intermediate Anesthetic Plan Anesthetic Plan: Agree w/ Assess. and Plan and TIVA Disposition: Standard PACU
[2024-11-23 10:34] VITALS: BMI 28.5
[2024-11-23 10:47] VITALS: BP 137/77; PULSE 82; RESP 18; TEMP 36.7; O2SAT 97
[2024-11-23 10:49] LABS: UPreg QC Valid YES; Urine Pregnancy NEGATIVE (NEGATIVE)
[2024-11-23] MEDS: Lactated Ringers 1,000 ML 100 ML IVCONT (11:00)
[2024-11-23 12:15] VITALS: BP 126/71; PULSE 76; RESP 18; TEMP 36.2; O2SAT 96
--- NOTE | 2024-11-23 12:22 | PM.OP ---
Brief Operative Note Date of Service: 11/23/24 Pre-op diagnosis: GERD, abdominal pain Post-op diagnosis: other (Hiatal hernia, R/O Gastritis) Procedure: EGD with biopsies Surgeon: Rao Jaeger MD Anesthesia: MAC Was an Cottrell Blower used for this Procedure?: No Estimated blood loss (mL): 2.0 Pathology: other (A. Gastric antrum B. EG Junction at 35cm) Condition: stable Disposition: PACU
[2024-11-23 12:30] VITALS: BP 136/79; PULSE 77; RESP 18; TEMP 36.8; O2SAT 96
--- NOTE | 2024-11-23 13:01 | OP_ITS ---
DATE OF SERVICE: 11/23/2024 SURGEON: Rao Jaeger MD INDICATIONS: The patient presents for evaluation of intermittent abdominal pain and reflux. Full consent has been obtained from her for this, including risks of bleeding and perforation. PREOPERATIVE DIAGNOSIS: POSTOPERATIVE DIAGNOSIS: PROCEDURE PERFORMED: Esophagogastroduodenoscopy with biopsies. ESTIMATED BLOOD LOSS: COMPLICATIONS: ANESTHESIA: Medication use; monitored anesthesia care. ASSISTANTS: SPECIMENS: PREOPERATIVE DIAGNOSES: Abdominal pain and reflux. POSTOPERATIVE DIAGNOSES: Abdominal pain and reflux, small hiatal hernia, rule out gastritis. DESCRIPTION OF PROCEDURE: The patient was placed in the left lateral decubitus position. The Olympus videogastroscope was passed in the posterior oropharynx and upper esophagus under direct vision. The scope was passed slowly into the distal esophagus. The gastroesophageal junction appeared at 35 cm. This area appeared minimally irregular consistent with reflux, but no evidence of esophagitis nor Guidry esophagus. There was a small hiatal hernia. The scope was advanced to pylorus and the duodenum was cannulated to the descending portion. The duodenum including the bulb appeared normal without mass or ulceration. The scope was withdrawn back to the stomach. The gastric antrum and body appeared normal other than some minimal areas of erythema. There was no sign of any ulceration or mass. There was good peristalsis. Biopsies were obtained from the antrum. The scope was retroflexed visualizing the proximal stomach carefully which appeared normal, without any sign of mass or ulceration. The scope was straightened. The scope was withdrawn back to the esophagus. Biopsies were obtained at the EG junction at 35 cm. Proximal to this, the esophageal mucosa appeared normal. The scope was withdrawn from the patient. She tolerated the procedure well and was returned to the recovery area in stable condition. IMPRESSION: 1. Small hiatal hernia, gastroesophageal reflux. 2. Rule out gastritis and Helicobacter pylori. PLAN: The results of biopsies will be checked. She has been advised to continue her daily omeprazole as she does report that works well for the reflux. I also advised to continue her p.r.n. hyoscyamine for abdominal discomfort, which I suspect is in relation to some irritable bowel syndrome. She was advised not to use any aspirin or NSAIDs for at least a week. If things remain stable, she will see me on a p.r.n. basis. She will be due for a followup colonoscopy in 2027. MD JOHANA Gonzalez/ILEANA / [id number]
== END 2024-11-23 13:15 | disposition home or self-care (01) ==
PROVIDERS: Nurse Practitioner; PCP Internal Medicine; Visit Provider Internal Medicine
PROC: 0DJ08ZZ Inspection of Upper Intestinal Tract, Via Natural or Artificial Opening Endoscopic (ICD-10-PCS; CPT 43235; principal; 2024-11-23 11:50)
DX: R10.9 Unspecified abdominal pain (principal); K21.9 Gastro-esophageal reflux disease without esophagitis; K44.9 Diaphragmatic hernia without obstruction or gangrene; K58.9 Irritable bowel syndrome, unspecified; I10 Essential (primary) hypertension; J45.909 Unspecified asthma, uncomplicated; N20.0 Calculus of kidney; F41.0 Panic disorder [episodic paroxysmal anxiety]; Z79.899 Other long term (current) drug therapy; F17.210 Nicotine dependence, cigarettes, uncomplicated
CPT/HCPCS: 43239; 81025; 88305; 88313; 88342; J2003; J2704; J3010

== ENCOUNTER 2025-04-11 09:20 | Outpatient (AMB) | payer OTHER, SELFPAY ==
--- NOTE | 2025-04-11 09:17 | A.OFFPC_ITS ---
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 Accompanied by: Self / Same As Patient Allergies watermelon Allergy (Mild, Verified 04/11/25 09:40) Unknown Medication List - Last Reconciled 04/11/25 by Salima Villalta PA-C albuterol sulfate 90 mcg/actuation 1 puff inhalation Q4H PRN atorvastatin 10 mg PO DAILY buspirone 5 mg PO BID PRN cefpodoxime 200 mg PO BID diltiazem HCl ER 180 mg PO DAILY ergocalciferol (vitamin D2) 1,250 mcg PO QWEEK hydrochlorothiazide 25 mg PO DAILY hydroxyzine HCl 25 mg PO BID PRN losartan 100 mg PO DAILY omeprazole 40 mg PO DAILY ondansetron HCl 4 mg PO BID PRN prednisone mg PO propranolol ER 120 mg PO DAILY sertraline 100 mg PO DAILY trazodone 25 mg PO tretinoin 0.025% appl topical Q3D Tobacco use date assessed: 04/11/25 Dental Screening Dental Screen Date: 04/11/25 Did you have a dental visit in the last 12 months?: Yes Was dental information given to patient?: Patient has dentist HPI Physical HPI Details The patient is a 49-year-old female presenting for a physical examination and management of anxiety and depression. The patient reports a history of anxiety and depression, which has been exacerbated by recent stressors, including the passing of her sister and managing her daughter's bipolar disorder. She experiences panic attacks, particularly when her daughter returns from school, a situation she has not encountered in over twenty years. The patient denies any thoughts of self-harm. Her daughter, aged 15, has been diagnosed with bipolar disorder and has been involved with law enforcement due to behavioral issues, including being placed in protective custody. The patient is actively involved in her daughter's care, which includes therapy and psychiatric support. The patient has a history of a hiatal hernia and colonic polyps, with previous colonoscopies revealing hemorrhoids but no malignancy. She has been undergoing colonoscopies since the age of 36 due to a family history of colon cancer. The patient reports a history of asthma but denies current symptoms such as wheezing or dyspnea. She is on multiple medications, including albuterol and losartan, and [facility]. Social History - Family status: The patient is actively involved in the care of her 15-year-old daughter, who has bipolar disorder. - Family planning: The patient has adopt ed a ctino-dmek-bhp boy, who is her niece's child. [facility] Medical History (Updated 04/11/25 @ 10:14 by Salima Villalta PA-C) Thyroid nodule History of mammogram (~09/20/24) Preventative health care Asthma Colonic polyp Hiatal hernia Depression Anxiety Annual physical exam Surgical History (Updated 04/11/25 @ 10:12 by Salima Villalta PA-C) History of colonoscopy (~07/23/22) Family History Mother No problems noted. Father Stroke Social History Housing: House Patient Tobacco Use Status: Current everyday Tobacco user service: No Current occupational status: employed Cognitive needs: No Hearing needs: No Vision needs: Yes (rx glasses) Questionnaire PHQ-9 Over the last 2 weeks, how often have you been bothered by any of the following problems? 1. Little interest or pleasure in doing things: nearly every day 2. Feeling down, depressed, or hopeless: nearly every day 3. Trouble falling or staying asleep, or sleeping too much: nearly every day 4. Feeling tired or having little energy: nearly every day 5. Poor appetite or overeating: not at all 6. Feeling bad about yourself - or that you are a failure or have let yourself or your family down: not at all 7. Trouble concentrating on things, such as reading the newspaper or watching television: not at all 8. Moving or speaking so slowly that other people could have noticed. Or the opposite - being so fidgety or restless that you have been moving around a lot more than usual: not at all 9. Thoughts that you would be better off or of hurting yourself in some way: not at all Total score: 12 Depression Screening Interpretation: Positive Depression Screening Follow-up: Existing condition, New Medication prescribed and Other (Referral to therapist and psychiatrist ordered at this time and PRN Ativan 0.5 mg 15 tablets for a 30 day course) Depression Screening Done: Yes 09709 - PHQ-9 Billing: Yes Source: Developed by Drs. Rao Veronica, Lavonne Flores, Ishan Gallegos and colleagues, with an educational arjun from [employer]. Thrive Questionnaire Date Thrive assessed: 04/11/25 I am a: Patient What is your living situation today?: I have a steady place to live Within the past 12 months, did the food you bought not last and you didn't have the money to get more?: Never true Within the past 12 months, did you worry whether your food would run out before you got money to buy more?: Never true Do you have trouble paying for medicines?: No Do you have trouble getting transportation to medical appointments?: No Do you have trouble paying your heating and electricity bill?: No Do you have trouble taking care of your child, family member or friend?: No Do you have trouble with day-to-day activities such as bathing, preparing meals, shopping, managing finances, etc.?: No Are you currently unemployed and looking for a job?: No Are you interested in more education?: No Please select the resources that you would like help with: None THRIVE Score: 0 AUDIT C Alcohol Use Questionnaire (AUDIT-C) 1. How often do you have a drink containing alcohol?: Monthly or less Total Score: 1 Score Reviewed/Action Taken: No YUDITH-7 AMB Questionnaire YUDITH-7 Date YUDITH - 7 assessed: 04/11/25 Feeling nervous, anxious, or on edge: 3 = Nearly every day Not being able to stop or control worryin = Nearly every day Worrying too much about different things: 0 = Not at all Trouble relaxin = Nearly every day Being so restless that it is hard to sit still: 3 = Nearly every day Becoming easily annoyed or irritable: 3 = Nearly every day Feeling afraid as if something awful might happen: 0 = Not at all Total YUDITH-7 score (0-4 normal; 5-9 mild; 10-14 moderate; 15-21 severe): 15 Source: Developed by Drs. Rao Veronica, Lavonne Flores, Ishan Gallegos and colleagues, with an educational arjun from [employer]. YUDITH-7 Assessment Billing YUDITH-7 Assessment Tool: YUDITH-7 Assessment 85020 Review of Systems Const Details: - Psychiatric: Reports anxiety and panic attacks. Denies suicidal ideation. - Respiratory: Denies dyspnea and wheezing. - Gastrointestinal: Denies abdominal pain, black or bloody stools, and unintentional weight loss. All systems reviewed & are unremarkable except as noted in HPI and below Physical exam (Primary Care) Vital Signs: Last Vital Signs Temp 97.2 F 04/11/25 09:26 Pulse 72 04/11/25 09:26 Resp 16 04/11/25 09:26 BP 111/57 L 04/11/25 09:26 Pulse Ox 97 04/11/25 09:26 Oxygen Delivery Method Room Air 04/11/25 09:26 Care Plan Goal for BP management: <140/90 at Goal BMI result Body Mass Index 27.7 BMI Assessment/Plan discussion: High BMI High, discussed plan: lifestyle, weight reduction, dietary, physical activity and alcohol moderation Tobacco/Smoking Status: Tobacco use Status Tobacco use date assessed 04/11/25 04/11/25 09:19 Patient Tobacco Use Status Current everyday Tobacco 04/11/25 09:37 PHQ-9: PHQ-9 Score PHQ-9: Total score 12 04/11/25 09:41 Depression Screening Interpretation: Positive Depression Screening Follow-up: Existing condition, New Medication prescribed and Other (Referral to therapist and psychiatrist ordered at this time and PRN Ativan 0.5 mg 15 tablets for a 30 day course) Thrive Assessment: Date of Thrive Assessment Date Thrive assessed 04/11/25 04/11/25 09:19 Const Other: Appearance: Alert. Oriented X3. No acute distress. Head: Normal external exam. Normocephalic. Atraumatic. Eyes: Pupils are equal, round, and reactive to light. Extraocular movements intact. Conjunctiva and sclera normal. Eyelids normal. Ears: External auditory canal normal. Tympanic membranes normal. Throat: Pharynx normal. Uvula midline. Moist mucous membranes. Neck: Normal inspection. Neck supple. Full range of motion. No adenopathy. Possible thyroid nodule noted. No meningeal signs. No neck mass noted. Cardiovascular: Normal heart rate and rhythm. Heart sound normal. No murmurs noted. Pulses normal throughout. Respiratory: No respiratory distress. Painless inspiration. Breath sounds normal. No wheezes/rales/rhonchi noted. Chest nontender. No accessory muscle usage noted or decreased air movement noted. Abdomen: Soft and nontender. Bowel sounds normal in all 4 quadrants. No distention noted. No organomegaly noted. No visible injury noted. Back: No costovertebral angle tenderness. Full range of motion noted. Skin: Skin warm and dry. Normal skin color. Normal skin turgor. No rashes/lesions/lacerations noted. Extremities: No lower extremity edema. Extremities exhibit normal range of motion. Extremities nontender. Neuro: Oriented X 3. No motor deficit. No sensory deficit. Reflexes normal. Office Procedures Flu Questionnaire Does the patient have a severe egg allergy?: No Does the patient have severe life threatening allergies?: No Does the patient have a fever or illness today?: No Has the patient ever had Guillain-Kopperl Syndrome?: No Has the patient ever had any past reaction to a flu shot?: No Immunizations Fluarix [id number] (PF) 45 mcg (15 mcg x 3)/0.5 mL IM syringe Performing Provider: Salima Villalta PA-C [facility] Administered by: Dayana Zeng CMA on 04/11/25 09:42 Dose Route Admin Location Dispensed Lot Number Expiration Date NDC Clinical Assistant 0.5 mL IM Right Deltoid 0.5 mL [id number] 01/09/26 14018-981-20 [facility] Given Date VIS Provided VIS Publication Date 04/11/25 Single Vaccine 24 Eligibility Eligibility Date Funding Source Not [facility] Eligible 03/30/25 Private Results Reviewed Results Reviewed: - Labs: CBC, CMP, hemoglobin A1c, cholesterol, liver panel, magnesium, vitamin B12, vitamin D, thyroid function tests ordered. - Imaging: Thyroid ultrasound ordered to evaluate lymph node. Coding Level of Care Code Est Pt Level 4 (45754) Est Pt Prev Care 40-64y(84403) Diagnoses Annual physical exam Z00.00 Anxiety F41.9 Depression F32.A Hiatal hernia K44.9 Colonic polyp K63.5 Asthma J45.909 Preventative health care Z00.00 Thyroid nodule E04.1 Additional Codes PHQ-9 - 85740 - PHQ-9 Billing: Yes ([id number]) YUDITH-7 Assessment Billing - YUDITH-7 Assessment Tool: YUDITH-7 Assessment 28338 ([id number]) Assessment & Plan Assessment & Plan (1) Annual physical exam: Code(s): Z00.00 - Encounter for general adult medical examination without abnormal findings Category: Medical (2) Anxiety: Code(s): F41.9 - Anxiety disorder, unspecified Category: Medical Plan: The patient will be referred for a psychiatric consultation to evaluate the need for ongoing therapy and potential medication adjustments. Ativan has been prescribed for acute anxiety management, with instructions to use it as needed. (3) Depression: Code(s): F32.A - Depression, unspecified Category: Medical Plan: The patient will be referred for a psychiatric consultation to evaluate the need for ongoing therapy and potential medication adjustments. (4) Hiatal hernia: Code(s): K44.9 - Diaphragmatic hernia without obstruction or gangrene Category: Medical Plan: The patient is advised to monitor for symptoms of acid reflux and seek further evaluation if symptoms worsen. (5) Colonic polyp: Code(s): K63.5 - Polyp of colon Category: Medical Plan: The patient will continue regular colonoscopy screenings due to a family history of colon cancer. (6) Asthma: Code(s): J45.909 - Unspecified asthma, uncomplicated Category: Medical Plan: The patient is advised to continue using albuterol as needed and to monitor for any exacerbation of symptoms. (7) Preventative health care: Code(s): Z00.00 - Encounter for general adult medical examination without abnormal findings Category: Medical Plan: The patient received a flu vaccination and will undergo routine blood work to monitor overall health. (8) Thyroid nodule: Code(s): E04.1 - Nontoxic single thyroid nodule Category: Medical Plan: Patient with possible thyroid nodule will order thyroid ultrasound. Plan Plan Patient was informed and verbally consented to the use of an ambient scribe for clinic note documentation during this visit. 1. Anxiety The patient will be referred for a psychiatric consultation to evaluate the need for ongoing therapy and potential medication adjustments. Ativan 15 tablets of 0.5 mg prn has been prescribed for acute anxiety management, with instructions to use it as needed. 2. Depression The patient will be referred for a psychiatric consultation to evaluate the need for ongoing therapy and potential medication adjustments. 3. Hiatal Hernia The patient is advised to monitor for symptoms of acid reflux and seek further evaluation if symptoms worsen. 4. Colonic Polyps The patient will continue regular colonoscopy screenings due to a family history of colon cancer. 5. Asthma The patient is advised to continue using albuterol as needed and to monitor for any exacerbation of symptoms. 6. Preventative Care The patient received a flu vaccination and will undergo routine blood work to monitor overall health. During the visit, I discussed with the patient the importance of managing her anxiety and depression, especially given the recent stressors in her life. We talked about the potential benefits of psychiatric consultation and the use of Ativan for acute anxiety episodes. I also emphasized the need for regular screenings, including colonoscopy, due to her family history of colon cancer. Orders: Orders Complete Blood Count Auto Diff Today Z00.00 - Encounter for general adult medical examination without abnormal findings Lipid Panel Today Z00.00 - Encounter for general adult medical examination without abnormal findings Liver Panel Today Z00.00 - Encounter for general adult medical examination without abnormal findings Vitamin B12 and Folate Today Z00.00 - Encounter for general adult medical examination without abnormal findings TSH reflex Free T4 Today Z00.00 - Encounter for general adult medical examination without abnormal findings Lyme IgG/IgM w/reflex to WB Today Z00.00 - Encounter for general adult medical examination without abnormal findings Influenza [id number] Immunization Today Z23 - Encounter for immunization C Reactive Protein Today Z00.00 - Encounter for general adult medical examination without abnormal findings Comprehensive [place]. Panel Fast Today Z00.00 - Encounter for general adult medical examination without abnormal findings Hemoglobin A1c Today Z00.00 - Encounter for general adult medical examination without abnormal findings Magnesium Today Z00.00 - Encounter for general adult medical examination without abnormal findings Vitamin D 25-OH Total Today Z00.00 - Encounter for general adult medical examination without abnormal findings UA CC w/rflx Micro + Cult Today Z00.00 - Encounter for general adult medical examination without abnormal findings US thyroid Today E04.1 - Nontoxic single thyroid nodule Referrals Psychiatry Referral F41.9 - Anxiety disorder, unspecified Psychiatry Outpatient Consultation Service F41.9 - Anxiety disorder, unspecified Counseling Referral F41.9 - Anxiety disorder, unspecified Medications: New lorazepam (Ativan) 0.5 mg PO DAILY PRN 15 tabs 0RF anxiety Patient Instructions: - Take Ativan as prescribed for anxiety, only when needed. - Schedule and attend a psychiatric consultation for further evaluation of anxiety and depression. - Continue regular colonoscopy screenings as advised. - Complete blood work as ordered and follow up for results.
[2025-04-11 09:26] VITALS: BP 111/57; PULSE 72; RESP 16; TEMP 36.2; O2SAT 97; BMI 27.7
--- OUTSIDE RECORDS SUMMARY | 2025-04-11 10:09 | XMS_ITS | Clinical Summary ---
Author Organization [facility] Address [address] [place] [address] Phone Care Team Providers Care Feed Miller Name Role Phone Nerissa Herrmann NP Unavailable [phone] Rao Tidwell DO Unavailable Patrick Sanderson MD Unavailable Rao Tidwell DO Primary Care Provider Allergies Active Allergy Reactions Criticality Noted Date Comments Bee Venom Protein (Honey Bee) Unknown 2016 Oxycodone-Acetaminophen Dizziness 08/13/2016 Rmipfofxd-Pzazjdocpz-Glzhch 05/27/20 23 Watermelon ONLY Shellfish Anaphylaxis High 08/13/2016 Medications hydroCHLOROthia zide (HYDRODIURIL) 50 MG tablet 04/15/2022 Active losartan (COZAAR) 100 MG tablet 04/15/2022 Active atorvastatin (LIPITOR) 10 MG tablet Take 10 mg by mouth daily. 02/24/2022 Active omeprazole (PRILOSEC) 40 MG capsule Take by mouth daily. 03/31/2022 Active sertraline (ZOLOFT) 50 MG tablet Take 50 mg by mouth daily. 02/24/2022 Active ergocalciferol (DRISDOL) 50,000 unit capsule Take 1 capsule by mouth once a week. 02/17/2022 Active propranoloL (INDERAL LA) 120 mg 24 hr capsule TAKE 1 CAPSULE BY MOUTH EVERY DAY FOR 30 DAYS 03/26/2022 Active nicotine polacrilex (NICORETTE) 2 mg gum CHEW 1 PIECE VIA CHEW AND PARK METHOD FOR 30 MINUTES NEEDED, 6 TIMES A DAY 04/11/2023 Active dilTIAZem (CARDIZEM LA) 180 mg 24 hr tablet Take 1 tablet by mouth every morning. 04/14/2024 Active norethindrone (AYGESTIN) 5 mg tablet Take 1 tablet (5 mg total) by mouth daily. 10 tablet 03/06/2025 Active Active Problems Problem Noted Date Diagnosed Date PCB (post coital bleeding) 10/06/2017 Assessment & Plan (10/06/2017 4:29 PM EDT): We reviewed normal exam findings today. If pap nl and post coital bleeding persists, offered MD consult which she may pursue. JONATHAN II (cervical intraepithelial neoplasia II) 0 10/06/2017 Assessment & Plan (10/25/2018 8:18 AM EDT): Pap nl/HPV negative 2017; we reviewed plan to repeat cotesting in 2020. Assessment & Plan (10/06/2017 4:29 PM EDT): We discussed long hx of abnl paps, LEEP in 2010 and 2014, with nl pap/pos HPV 18 in 2015 and nl pap/neg HPV in 2016. Due to complex hx, persistent HPV and post coital bleeding pap/HPV screen done today. If nl, can repeat in 3 years. Encounters Date Type Department Care Team Description 03/06/2025 11:00 AM EDT Office Visit [facility] [address] [place] [address] [place] [address] Abigail Ballard MD Menstrual irregularity (Primary Dx) 03/02/2025 Telephone [facility] [address] [place] [address] [place] [address] Emilia Ricketts LPN Abnormal Uterine Bleeding from Last 3 Months Immunizations Immunization Administration Dates Next Due COVID-19 (Pre-05/04) Pfizer Vaccine, mRNA, PF ,07/15/2020 Influenza Split (Incl. Purified Surface Antigen) 05/12/2016,05/25/2015 Family History Medical History Relation Comments COPD Father CV disease Father Heart attack Father Hypertension Father Stroke Father Breast cancer Maternal Aunt Cancer Maternal Aunt breast at 53 Breast cancer Maternal Grandmother CV disease Mother Hypertension Mother Cancer Paternal Grandfather colon 80s Cancer Paternal Grandmother breast at 5 0s Relation Status Comments Brother Alive Father Maternal Aunt Maternal Grandmother Mother Alive Paternal Grandfather Paternal Grandmother Sister 1 Alive Sister 2 Alive Social History Tobacco Use Types Packs/Day Years Used Date Smoking Tobacco: Every Day Cigarettes 0.5 10 Smokeless Tobacco: Never Tobacco Cessation:Ready to Q uit: Not Asked; Counseling Given: Not Answered Alcohol Use Standard Drinks/Week Comments Yes 0 (1 standard drink = 0.6 oz pur e alcohol) Socially Education Answer Date Recorded Are you interested in more education? Not on leeann e 11/07/2022 Are you concerned about learning? Not on file 11/07/2022 No 11/07/2022 No 11/07/2022 Digital Access Answer Date Recorded No 12/05/2022 No 12/05/2022 Reliable internet access at home? Not on file 12/05/2022 Device with a working camera? Not on file Comments No Sex and Gender Information Value Date Recorded Sex Assigned at Not on file Legal Sex Female 9:27 PM EDT Gender Identity Not on file Sexual Orientation Not on file Last Filed Vital Signs Vital Sign Reading Time Taken Comments Blood Pressure 108/68 03/06/2025 11:05 AM EDT Pulse - - Temperature - - Respiratory Rate - - Oxygen Saturation - - Inhaled Oxygen Concentration - - Weight 75.3 kg (166 lb) 03/06/2025 11:05 AM EDT Height 165.1 cm (5' 5 ) 06/08/2024 1:42 PM EST Body Mass Index 27.62 06/08/2024 1:42 PM EST Plan of Treatment Health Maintenance Due Date Last Done Comments Adult Td,Tdap Booster 1975 CREATININE LEVEL 1975 LIPID PANEL 1976 POTASSIUM LEVEL 1976 DEPRESSION SCREENING 1988 HEPATITIS C SCREENING 1994 HIV ONE-TIME SCREENING (18-65 YEARS) 1994 PNEUMOCOCCAL VACCINES (0-49 years) (1 of 2 - PCV) 1995 COLOGUARD 2021 COLONOSCOPY 2021 COLORECTAL CANCER SCREENING 2021 FIT TEST 2021 FOBT 2021 SIGMOIDOSCOPY 2021 VIRTUAL COLONOSCOPY 2021 SCREENING FOR DIABETES 03/13/2023 03/13/2020 INFLUENZA VACCINE (#1) 2025 05/12/2016, 2014 COVID-19 VACCINE ( season) 2025 05/14/2021, 08/05/2020, 07/15/2020 PAP SMEAR 04/17/2025 04/17/2022, 09/11, 10/06/2017, Additional history exists SMOKING Hx and SMOKELESS TOBACCO SCREENING 03/06/2026 03/06/2025 MAMMOGRAM 10/06/2026 10/06/2024, 02/2024, 06/30/2022, Additional history exists HEPATITIS A VACCINES Aged Out No long er eligible based on patient's age to complete this topic HIB VACCINES Aged Out No longer eligi ble based on patient's age to complete this topic MENINGOCOCCAL VACCINES (ACWY) Aged Out No longer eligible based on patient's age to complete this topic MENINGOCOCCAL VACCINES (B) Aged Out N o longer eligible based on patient's age to complete this topic Medical Devices Not on file Procedures Procedure Name Priority Date/Time Associated Diagnosis Comments BI MAMMOGRAM SCREENING WITH TOMOSYNTHESIS WITH CAD (BILATERAL) Routine 10/06/2024 3:32 PM EDT Breast screening PAP TEST Routine 04/17/2022 12:00 AM EDT from Last 3 Months or Most Recently Relevant to Health Maintenance Results * BI MAMMOGRAM SCREENING WITH TOMOSYNTHESIS WITH CAD (BILATERAL) (10/06/2024 3:32 PM EDT) Anatomical Region Laterality Modality Breast Left, Breast Right, Breast Bilateral Bila teral Mammography 10/06/2024 3:41 PM EDT Impressions 10/06/2024 4:32 PM EDT No mammographic evidence of malignancy in either breast. Annual screening mammography is recommended. BI-RADS 1 NEGATIVE The patient will be notified of the results and recommendations. Narrative 10/06/2024 4:32 PM EDT BI MAMMOGRAM SCREENING WITH TOMOSYNTHESIS WITH CAD (BILATERAL) Additional patient information: Screening. COMPARISON: Comparison is made with relevant prior imaging. Breast composition: There are scattered areas of fibroglandular density. FINDINGS: No abnormal masses, suspicious calcifications, or other significant findings are identified mammographically in either breast. Procedure Note Ron Brown MD - 10/06/2024 BI MAMMOGRAM SCREENING WITH TOMOSYNTHESIS WITH CAD (BILATERAL) Additional patient information: Screening. COMPARISON: Comparison is made with relevant prior imaging. Breast composition: There are scattered areas of fibroglandular density. FINDINGS: No abnormal masses, suspicious calcifications, or other significantfindings are identified mammographically in either breast. IMPRESSION: No mammographic evidence of malignancy in either breast. Annual screening mammography is recommended. BI-RADS 1 NEGATIVE The patient will be notified of the results and recommendations. Rao Tidwell DO IMG MG EXAMS Final Result * Pap Smear (04/17/2022 12:00 AM EDT) 04/17/2022 04/18/2022 9:4 0 AM EDT Narrative SEE NARRATIVE - 04/24/2022 2:20 PM EDT [address] [address] [employer] Farmworker: Kelsea Mendoza MD MERCHANDISE FLOW TEAM MEMBER Cytology Report FINAL DIAGNOSIS A. PAP SMEAR (SUREPATH) CE: SPECIMEN ADEQUACY: Satisfactory for evaluation; transformation zone present. INTERPRETATION: NEGATIVE FOR INTRAEPITHELIAL LESION OR MALIGNANCY. Coccobacilli consistent with shift in karen Electronically Signed Out By: LA Kim(ASCP) The Pap test is a screening test primarily for squamous cancers and precursors and has associated false-negative and false-positive results. New technologies such as liquid-based preparations may decrease but will not eliminate all false-negative results. Regular sampling and follow-up of unexplained clinical signs and symptoms are recommended to minimize false negative results. PROCEDURES/ADDENDA HPV Testing (Requested) Ordered Date: 04/18/2022 A. PAP SMEAR (SUREPATH) CE: Human Papilloma Virus Test Negative for high-risk human papillomavirus types 16, 18, 45 and the Other high risk probe set (Includes 31, 33, 35, 39, 51, 52, 56, 58, 59, 66, 68) by [email or web address] HR-HPV analysis. Clinical correlation is advised. This HPV test was performed at [facility], [address] [place] [address]. This test has been FDA approved for SurePath cervical cytology specimens. The accuracy and precision of this test for all other specimen sources has been verified in the Cytopathology Laboratory of the [facility] and has not been cleared or approved by the U.S. Food and Drug Administration. Clinical correlation is advised. CLINICAL HISTORY Date of Last Menstrual Period: Not Provided Menstrual History: Bleeding, Irregular Treatment History: LEEP: 2015 Other Clinical Conditions: Screening Pap SPECIMEN SOURCE A: PAP SMEAR (SUREPATH) CE Patient Name: KIMI HUSTON : 1975 (Age: 46) Sex: F Institution: [facility] Location: [facility] Date of Collection: 04/17/2022 Date of Reported: 04/24/2022 14:20 Results to: Patrick Sanderson MD, BS Patrick Sanderson MD CYTOLOGY ORDERABLES Final Res ult SEE NARRATIVE from Last 3 Months or Most Recently Relevant to Health Maintenance Insurance AETNA HMO POS EPO AETNA HMO POS EPO AET HMO POS EPO AETNA HMO POS EPO O POS EPO AETNA O POS EPO AETNA O POS [facility] EPO Care Teams Feed Miller Relationship Specialty Start Date End Date Rao Tidwell DO [address] [place] [address] PCP - General 07/16/17 Nerissa Herrmann NP [address] [place] [address] [email or web address] Historical LMR Provider 05/02/17 Rao Tidwell DO [address] [place] [address] Historical LMR Provider 05/02/17 Patrick Sanderson MD [address] [place] [address] [email or web address] Historical LMR Provider 05/02/17 Additional Source Comments The information contained in this document represents components of the legal health record. It is not the complete legal health record.[facility]
--- OUTSIDE RECORDS SUMMARY | 2025-04-11 10:09 | XMS_ITS | Encounter Summary ---
Author Organization [facility] Address [address] [place] [address] [place] [address] Phone Care Team Providers Care Senior Data Developer Name Role Phone Ada, Nerissa Vaibhav BRIGHT Unavailable [phone] Rao Tidwell DO Unavailable Patrick Sanderson MD Unavailable [phone] Rao Tidwell DO Primary Care Provider [phone] Encounter Details Date Type Department Care Team (Latest Contact Info) Description 05/12/2023 Transcribe Orders Virtual Department [address] [place] [address] Rao Tidwell, [address] [place] [address] Breast screening (Primary Dx) Social History Tobacco Use Types Packs/Day Years Used Date Smoking Tobacco: Every Day Cigarettes 0.5 10 Smokeless Tobacco: Never Alcohol Use Standard Drinks/Week Comments Yes 0 [...] on file Sexual Orientation Not on file documented as of this encounter Plan of Treatment Not on file documented as of this encounter Results * BI MAMMOGRAM SCREENING WITH TOMOSYNTHESIS WITH CAD (BILATERAL) (07/20/2023 12:38 PM EST) Anatomical Region Laterality Modality Breast Left, Breast Right, Breast Bilateral Bila teral Mammography 07/23/2023 5:59 PM EST Impressions 07/28/2023 5:39 PM EST No mammographic signs of malignancy. Annual screening is recommended. BI-RADS CATEGORY: 1 - Negative. DENSITY: There are scattered fibroglandular densities. Narrative 07/28/2023 5:39 PM EST Bilateral mammography is performed in conjunction with computed aided detection. 3-D tomography along with 2-D C view imaging was also performed. Comparison made to previous dated as far back as 12/11/2016 and as recent as 06/30/2022. No suspicious masses, areas of architectural distortion or suspicious microcalcifications. Procedure Note Ron Brown MD - 07/28/2023 Bilateral mammography is performed in conjunction with computed aideddetection. 3-D tomography along with 2-D C view imaging was alsoperformed. Comparison made to previous dated as far back as 12/11/2016 andas recent as 06/30/2022. No suspicious masses, areas of architectural distortion or suspiciousmicrocalcifications. IMPRESSION: No mammographic signs of malignancy. Annual screening is recommended. BI-RADS CATEGORY: 1 - Negative. DENSITY: There are scattered fibroglandular densities. Rao Tidwell DO IMG MG EXAMS Final Result documented in this encounter Visit Diagnoses Diagnosis Breast screening- Primary Breast screening, unspecified Breast screening Breast screening, unspecified documented in this encounter Care Teams Senior Data Developer Relationship Specialty Start Date End Date Roa Tidwell DO [address] [place] [address] PCP - General 07/16/17 Nerissa Herrmann NP [address] [place] [address] [email or web address] Historical LMR Provider 05/02/17 Rao Tidwell DO [address] [place] [address] Historical LMR Provider 05/02/17 Patrick Sanderson MD [address] [place] [address] [email or web address] Historical LMR Provider 05/02/17 documented as of this encounter Additional Source Comments The information contained in this document represents components of the legal health record. It is not the complete legal health record.[facility]
--- OUTSIDE RECORDS SUMMARY | 2025-04-11 10:09 | XMS_ITS | Encounter Summary ---
Author Organization [facility] Address [address] [place] [address] Phone Care Team Providers Care Pivot Maker Name Role Phone Otilia Coolara Celso CNM Unavailable Nerissa Herrmann RECEIVING AND PROCESSING SUPERVISOR Unavailable [phone] Randi Hernandez RECEIVING AND PROCESSING SUPERVISOR Unavailable Collette Rodarte MD Unavailable [phone] Rao Tidwell DO Unavailable Leilani Lazo MD Unavailable [phone] Patrick Sanderson MD Unavailable Hallie Carrillo MD Unavailable Elsy Mahmood MD Unavailable Constanza Rodriguez MD Unavailable [phone] Rao Tidwell DO Primary Care Provider Encounter Details Date Type Department Care Team (Late st Contact Info) Description 03/07/2019 Ancillary Orders Virtual Department [address] [place] [address] Rao Tidwell DO [address] [place], [place] [id number] Breast screening Social History Tobacco Use Types Packs/Day Years Used Date Smoking Tobacco: Every Day Cigarettes Smokeless Tobacco: Never Alcohol Use Standard Drinks/Week Comments Yes 0 (1 standard drink = 0.6 oz pur e alcohol) Comments No Sex and Gender Information Value Date Recorded Sex Assigned at Not on file Legal Sex Female 9:27 PM EDT Gender Identity Not on file Sexual Orientation Not on file documented as of this encounter Plan of Treatment Not on file documented as of this encounter Results * BI MAMMOGRAM SCREENING WITH TOMOSYNTHESIS WITH CAD (BILATERAL) (05/05/2019 9:02 AM EDT) Anatomical Region Laterality Modality Breast Left, Breast Right, Breast Bilateral Bila teral Mammography 05/05/2019 9:09 AM EDT Impressions 05/05/2019 9:12 AM EDT RIGHT breast: No mammographic evidence of malignancy. LEFT breast: No mammographic evidence of malignancy. RECOMMENDED FOLLOWUP: Routine screening mammography is recommended, as clinically appropriate. The results will be sent by mail to the patient. BI-RADS CATEGORY: 1 - Negative. BREAST COMPOSITION: There are scattered fibroglandular densities. POS - [id number] Narrative 05/05/2019 9:12 AM EDT EXAM: BI MAMMOGRAM SCREENING WITH TOMOSYNTHESIS WITH CAD (BILATERAL) HISTORY: Screening. * Annual Breast screening COMPARISON: Prior mammograms including 05/04/2018, 12/11/2016, 10/18/2015. TECHNIQUE: Digital breast tomosynthesis was performed in CC and MLO projections. Reconstructed 2-D C-views generated from the tomosynthesis images. Images interpreted in conjunction with R-2 Image Transportation Operations Manager computer-aided detection (CAD). FINDINGS: BREAST COMPOSITION: There are scattered areas of fibroglandular density. RIGHT breast: There are no suspicious masses, suspicious areas of architectural distortion or suspicious clusters of microcalcifications. LEFT breast: There are no suspicious masses, suspicious areas of architectural distortion or suspicious clusters of microcalcifications. Procedure Note Amairani Perea MD - 05/05/2019 EXAM: BI MAMMOGRAM SCREENING WITH TOMOSYNTHESIS WITH CAD (BILATERAL) HISTORY: Screening. * Annual Breast screening COMPARISON: Prior mammograms including 05/04/2018, 12/11/2016,10/18/2015. TECHNIQUE: Digital breast tomosynthesis was performed in CC and MLOprojections. Reconstructed 2-D C-views generated from the tomosynthesisimages. Images interpreted in conjunction with R-2 Image Checkercomputer-aided detection (CAD). FINDINGS: BREAST COMPOSITION: There are scattered areas of fibroglandular density. RIGHT breast: There are no suspicious masses, suspicious areas ofarchitectural distortion or suspicious clusters of microcalcifications. LEFT breast: There are no suspicious masses, suspicious areas ofarchitectural distortion or suspicious clusters of microcalcifications. IMPRESSION: RIGHT breast: No mammographic evidence of malignancy. LEFT breast: No mammographic evidence of malignancy. RECOMMENDED FOLLOWUP: Routine screening mammography is recommended, asclinically appropriate. The results will be sent by mail to the patient. BI-RADS CATEGORY: 1 - Negative. BREAST COMPOSITION: There are scattered fibroglandular densities. POS - [id number] Rao Tidwell DO IMG MG EXAMS Final Result documented in this encounter Visit Diagnoses Diagnosis Breast screening Breast screening, unspecified Breast screening Breast screening, unspecified documented in this encounter Care Teams Pivot Maker Relationship Specialty Start Date End Date Rao Tidwell DO [address] [place] [address] PCP - General 07/16/17 Lydia Cool CNM [address] [place] [address] Historical LMR Provider 05/02/17 2 Nerissa Herrmann NP [address] [place] [address] Historical LMR Provider 05/02/17 Randi Hernandez NP [address] [place] [phone] Historical LMR Provider 05/02/17 2 Collette Rodarte MD [address] [place] [address] [place] [address] Historical LMR Provider 05/02/17 Rao Tidwell DO [address] [place] [address] Historical LMR Provider 05/02/17 Leilani Lazo MD [address] [place] [address] Historical LMR Provider 05/02/17 2 Patrick Sanderson MD [address] [address] Historical LMR Provider 05/02/17 Hallie Carrillo MD [address] [place] [phone] Historical LMR Provider 05/02/17 2 Elsy Mahmood MD [address] [address] Historical LMR Provider 05/02/17 07/20/21 Constanza Rodriguez MD [address] [place] [address] Historical LMR Provider 05/02/17 2 documented as of this encounter Additional Source Comments The information contained in this document represents components of the legal health record. It is not the complete legal health record.[facility]
--- OUTSIDE RECORDS SUMMARY | 2025-04-11 10:09 | XMS_ITS | Encounter Summary ---
Author Organization [facility] Address [address] [place] [address] Phone Care Team Providers Care Shuttle Preparation Supervisor Name Role Phone Nerissa Herrmann NP Unavailable [phone] Rao Tidwell DO Unavailable Patrick Sanderson MD Unavailable [phone] Rao Tidwell DO Primary Care Provider Encounter Details Date Type Department Care Team (Late st Contact Info) Description 04/27/2024 Procedure Pass [facility], [facility] [address] [place] [address] Social History Tobacco Use Types Packs/Day Years [...] on file documented as of this encounter Visit Diagnoses Not on filedocumented in this encounter Care Teams Shuttle Preparation Supervisor Relationship Specialty Start Date End Date Rao Tidwell DO [address] [place] [address] PCP - General 07/16/17 Nerissa Herrmann NP [address] [place] [address] [email or web address] Historical LMR Provider 05/02/17 Rao Tidwell DO [address] [place] [address] Historical LMR Provider 05/02/17 Patrick Sanderson MD [address] [place] [address] [email or web address] Historical LMR Provider 05/02/17 documented as of this encounter Additional Source Comments The information contained in this document represents components of the legal health record. It is not the complete legal health record.[facility]
--- OUTSIDE RECORDS SUMMARY | 2025-04-11 10:09 | XMS_ITS | Encounter Summary ---
Author Organization [facility] Address [address] [place], [place] [phone] Phone Care Team Providers Care Immigration Officer Name Role Phone Lydia Cool CNM Unavailable Nerissa Herrmann ZOO KEEPER Unavailable [phone] Randi Hernandez ZOO KEEPER Unavailable Collette Rodarte MD Unavailable Rao Tidwell DO Unavailable Leilani Lazo MD Unavailable [phone] Patrick Sanderson MD Unavailable [phone] Hallie Carrillo MD Unavailable Elsy Mahmood MD Unavailable Constanza Rodriguez MD Unavailable [phone] Rao Tidwell DO Primary Care Provider [phone] Encounter Details Date Type Department Care Team (Late st Contact Info) Description 03/21/2020 Procedure Pass [facility], [address] [phone] Social History Tobacco Use Types Packs/Day Years Used Date Smoking Tobacco: Every Day Cigarettes Smokeless Tobacco: Never Alcohol Use Standard Drinks/Week Comments Yes 0 (1 standard drink = 0.6 oz pur e alcohol) 1-2 weekly Comments No Sex and Gender Information Value Date Recorded Sex Assigned at Not on file Legal Sex Female 9:27 PM EDT Gender Identity Not on file Sexual Orientation Not on file documented as of this encounter Plan of Treatment Not on file documented as of this encounter Visit Diagnoses Not on filedocumented in this encounter Care Teams Immigration Officer Relationship Specialty Start Date End Date Rao Tidwell DO [address] [place] [address] PCP - General 07/16/17 Lydia Cool CNM [address] [place] [address] Historical LMR Provider 05/02/17 2 Nerissa Herrmann NP [address] [place] [address] [email or web address] Historical LMR Provider 05/02/17 Randi Hernandez NP [address] [place] [phone] Historical LMR Provider 05/02/17 2 Collette Rodarte MD [address] [place] [address] Historical LMR Provider 05/02/17 Rao Tidwell DO [address] [place] [address] Historical LMR Provider 05/02/17 Leilani Lazo MD [address] [place] [address] Historical LMR Provider 05/02/17 2 Patrick Sanderson MD [address] [place] [address] [email or web address] Historical LMR Provider 05/02/17 Hallie Carrillo MD [address] [place], [place] Historical LMR Provider 05/02/17 2 Elsy Mahmood MD [address] [place] [address] [email or web address] Historical LMR Provider 05/02/17 07/20/21 Constanza Rodriguez MD [address], [place] [address] Historical LMR Provider 05/02/17 2 documented as of this encounter Additional Source Comments The information contained in this document represents components of the legal health record. It is not the complete legal health record.[facility]
--- OUTSIDE RECORDS SUMMARY | 2025-04-11 10:09 | XMS_ITS | Encounter Summary ---
Author Organization [facility] Address [address] [place] [address] Phone Care Team Providers Care Building Custodian Name Role Phone Nerissa Herrmann NP Unavailable [phone] Rao Tidwell DO Unavailable Patrick Sanderson MD Unavailable [phone] Rao Tidwell DO Primary Care Provider Encounter Details Date Type Department Care Team (Late st Contact Info) Description 05/12/2023 Procedure Pass [facility], [facility] [address] [place] [address] Social History Tobacco Use Types Packs/Day Years [...] on filedocumented in this encounter Care Teams Building Custodian Relationship Specialty Start Date End Date Rao Tidwell DO [address] [place] [address] PCP - General 07/16/17 Nerissa Herrmann NP [address] [place] [address] [email or web address] Historical LMR Provider 05/02/17 Rao Tidwell DO [address] [place] [address] Historical LMR Provider 05/02/17 Patrick Sanderson MD [address] [place] [address] [email or web address] Historical LMR Provider 05/02/17 documented as of this encounter Additional Source Comments The information contained in this document represents components of the legal health record. It is not the complete legal health record.[facility]
--- OUTSIDE RECORDS SUMMARY | 2025-04-11 10:09 | XMS_ITS | Encounter Summary ---
Author Organization [facility] Address [address] [place] [address] Phone Care Team Providers Care Acid Plant Helper Name Role Phone Nerissa Herrmann J2EE JAVA DEVELOPER Unavailable [phone] Rao Tidwell DO Unavailable Patrick Sanderson MD Unavailable Rao Tidwell DO Primary Care Provider Encounter Details Date Type Department Care Team (Late st Contact Info) Description 05/13/2022 Procedure Pass [facility], [address] [address] Social History Tobacco Use Types Packs/Day Years Used Date Smoking Tobacco: Every Day Cigarettes 0.5 10 Smokeless Tobacco: Never Alcohol Use Standard Drinks/Week Comments Yes 0 (1 standard drink = 0.6 oz pur e alcohol) Socially Comments No Sex and Gender Information Value Date Recorded Sex Assigned at Not on file Legal Sex Female 9:27 PM EDT Gender Identity Not on file Sexual Orientation Not on file documented as of this encounter Plan of Treatment Not on file documented as of this encounter Visit Diagnoses Not on filedocumented in this encounter Care Teams Acid Plant Helper Relationship Specialty Start Date End Date Rao Tidwell DO [address] [place] [address] PCP - General 07/16/17 Nerissa Herrmann, J2EE JAVA DEVELOPER [address] [place] [address] [email or web address] Historical LMR Provider 05/02/17 Rao Tidwell DO [address] [place] [address] Historical LMR Provider 05/02/17 Patrick Sanderson MD [address] [place] [address], [facility] [address] [place] [address] [email or web address] Historical LMR Provider 05/02/17 documented as of this encounter Additional Source Comments The information contained in this document represents components of the legal health record. It is not the complete legal health record.[facility]
--- OUTSIDE RECORDS SUMMARY | 2025-04-11 10:09 | XMS_ITS | Encounter Summary ---
Author Organization [facility] Address [address] [place] [address] Phone Care Team Providers Care Retort Furnace Helper Name Role Phone Lydia Cool CNM Unavailable Nerissa Herrmann APPLE SOLUTIONS CONSULTANT Unavailable [phone] Randi Hernandez APPLE SOLUTIONS CONSULTANT Unavailable Collette Rodarte MD Unavailable Rao Tidwell DO Unavailable Leilani Lazo MD Unavailable [phone] Patrick Sanderson MD Unavailable Hallie Carrillo MD Unavailable Elsy Mahmood MD Unavailable Constanza Rodriguez MD Unavailable [phone] Rao Tidwell DO Primary Care Provider Encounter Details Date Type Department Care Team (Latest Contact Info) Description 04/30/2021 Transcribe Orders Virtual Department [address] [place] [address] Rao Tidwell DO [address] [place] [address] Breast screening (Primary Dx) Social History Tobacco [...] MAMMOGRAM SCREENING WITH TOMOSYNTHESIS WITH CAD (BILATERAL) (06/28/2021 8:10 AM EST) Anatomical Region Laterality Modality Breast Left, Breast Right, Breast Bilateral Bila teral Mammography 06/28/2021 10:3 2 AM EST Impressions 06/28/2021 10:37 AM EST BILATERAL BREASTS: Negative, no evidence of malignancy. Normal interval follow- up is recommended in 12 months. Bi-RADS: BI-RADS CATEGORY: 1 - Negative. DENSITY: There are scattered fibroglandular densities. Narrative 06/28/2021 10:37 AM EST STUDY: Bilateral screening mammography with tomosynthesis and CAD TECHNIQUE: Bilateral full-field digital screening mammography is obtained and read in conjunction with computer-aided detection. Tomosynthesis as well as 2-D C view imaging were obtained. COMPARISON: Comparison made to multiple prior, most recent June 27, 2020, and most remote October 18, 2015. BREAST COMPOSITION: There are scattered areas of fibroglandular density BILATERAL BREASTS: No significant masses, suspicious calcifications or other abnormalities are seen. Procedure Note Rommel Lechuga MD - 06/28/2021 STUDY: Bilateral screening mammography with tomosynthesis and CAD TECHNIQUE: Bilateral full-field digital screening mammography is obtainedand read in conjunction with computer-aided detection. Tomosynthesis aswell as 2-D C view imaging were obtained. COMPARISON: Comparison made to multiple prior, most recent June, and most remote October 18, 2015. BREAST COMPOSITION: There are scattered areas of fibroglandulardensity BILATERAL BREASTS: No significant masses, suspicious calcifications orother abnormalities are seen. IMPRESSION: BILATERAL BREASTS: Negative, no evidence of malignancy. Normal intervalfollow-up is recommended in 12 months. Bi-RADS: BI-RADS CATEGORY: 1 - Negative. DENSITY: There are scattered fibroglandular densities. Rao Tidwell DO IMG MG EXAMS Final Result documented in this encounter Visit Diagnoses Diagnosis Breast screening- Primary Breast screening, unspecified Breast screening Breast screening, unspecified documented in this encounter Care Teams Retort Furnace Helper Relationship Specialty Start Date End Date Rao Tidwell DO [address] [place] [address] PCP - General 07/16/17 Lydia Cool CNM [address] [place] [address] Historical LMR Provider 05/02/17 2 Nerissa Herrmann NP [address] [place] [address] Historical LMR Provider 05/02/17 Randi Hernandez NP [address] [place] [phone] Historical LMR Provider 05/02/17 2 Collette Rodarte MD [address] [place] [address] Historical LMR Provider 05/02/17 Rao Tidwell DO [address] [place] [address] Historical LMR Provider 05/02/17 Leilani Lazo MD [address] [place] [address] Historical LMR Provider 05/02/17 2 Patrick Sanderson MD [address] [place] [address] Historical LMR Provider 05/02/17 Hallie Carrillo MD [address] [place] [phone] Historical LMR Provider 05/02/17 2 Elsy Mahmood MD [address] [place] [address] Historical LMR Provider 05/02/17 07/20/21 Constanza Rodriguez MD [address] [place] [phone] Historical LMR Provider 05/02/17 2 documented as of this encounter Additional Source Comments The information contained in this document represents components of the legal health record. It is not the complete legal health record.[facility]
--- OUTSIDE RECORDS SUMMARY | 2025-04-11 10:09 | XMS_ITS | Encounter Summary ---
Author Organization [facility] Address [address] [place], [place] [address] Phone Care Team Providers Care Diversity Manager Name Role Phone Lydia Cool CNM Unavailable Nerissa Herrmann HEAD GAUGE UNIT OPERATOR Unavailable [phone] Randi Hernandez HEAD GAUGE UNIT OPERATOR Unavailable Collette Rodarte MD Unavailable Rao Tidwell DO Unavailable Leilani Lazo MD Unavailable [phone] Patrick Sanderson MD Unavailable [phone] Hallie Carrillo MD Unavailable Elsy Mahmood MD Unavailable Constanza Rodriguez MD Unavailable [phone] Rao Tidwell DO Primary Care Provider Encounter Details Date Type Department Care Team (Late st Contact Info) Description 04/30/2021 Procedure Pass [facility], [address] [phone] Social History Tobacco Use Types Packs/Day Years [...] on filedocumented in this encounter Care Teams Diversity Manager Relationship Specialty Start Date End Date Rao Tidwell DO [address] [place] [address] PCP - General 07/16/17 Lydia Cool CNM [address] [place] [address] Historical LMR Provider 05/02/17 2 Nerissa Herrmann, HEAD GAUGE UNIT OPERATOR [address] [place] [address] [email or web address] Historical LMR Provider 05/02/17 Randi Hernandez HEAD GAUGE UNIT OPERATOR [address] [place] [phone] Historical LMR Provider 05/02/17 2 Collette Rodarte MD [address] [place] [address], [address] [place] [address] Historical LMR Provider 05/02/17 Rao Tidwell DO [address] [place] [address] Historical LMR Provider 05/02/17 Leilani Lazo MD [address] [place] [address] Historical LMR Provider 05/02/17 2 Patrick Sanderson MD [address] [place] [address] [email or web address] Historical LMR Provider 05/02/17 Hallie Carrillo MD [address] [place] [phone] Historical LMR Provider 05/02/17 2 Elsy Mahmood MD [address] [place] [address] [email or web address] Historical LMR Provider 05/02/17 07/20/21 Constanza Rodriguez MD [address] [address] Historical LMR Provider 05/02/17 2 documented as of this encounter Additional Source Comments The information contained in this document represents components of the legal health record. It is not the complete legal health record.[facility]
== END 2025-04-11 09:59 | disposition home or self-care (01) ==
LOC: HO.HMCSH 09:20
PROVIDERS: PCP Physician Assistant Medical; Visit Provider Physician Assistant Medical
DX: Z00.00 Encounter for general adult medical examination without abnormal findings (principal); F41.9 Anxiety disorder, unspecified; F32.A Depression, unspecified; K44.9 Diaphragmatic hernia without obstruction or gangrene; K63.5 Polyp of colon; J45.909 Unspecified asthma, uncomplicated; E04.1 Nontoxic single thyroid nodule; Z23 Encounter for immunization

== ENCOUNTER → 2025-04-11 09:20 | Outpatient (BNVA) | payer OTHER, SELFPAY | PROVIDERS: PCP Physician Assistant Medical; Visit Provider Physician Assistant Medical | DX: Z00.00 Encounter for general adult medical examination without abnormal findings (principal); F32.A Depression, unspecified; F41.9 Anxiety disorder, unspecified; J45.909 Unspecified asthma, uncomplicated; K44.9 Diaphragmatic hernia without obstruction or gangrene; K63.5 Polyp of colon; E04.1 Nontoxic single thyroid nodule; Z23 Encounter for immunization | CPT/HCPCS: 90471; 90656; 96127 ==

== ENCOUNTER 2025-06-12 15:05 | Outpatient (REF) | payer OTHER, SELFPAY ==
--- NOTE | ~2025-06-12 | US_ITS ---
EXAMINATION: US THYROID CLINICAL INFORMATION: E 04.1. Nontoxic single thyroid nodule. COMPARISON: None available. TECHNIQUE: Linear transducer grayscale and color Doppler examination with attention to the region of the thyroid. FINDINGS: SIZE: Measurements of the thyroid lobes and nodules are given in sagittal, anteroposterior and transverse dimensions respectively. Right Thyroid Lobe: 5.3 x 1.6 x 1.5 cm, volume 6.7 mL. Parenchyma: The gland echotexture is normal. Thyroid vascularity is normal. Left Thyroid Lobe: 5.3 x 1.3 x 1.7 cm, volume 6.4 mL. Parenchyma: The gland echotexture is normal. Thyroid vascularity is normal. Isthmus: 0.27 cm in maximum AP dimension. Estimated total number of nodules greater than or equal to 1 cm: 0. Traffic I Manager nodules are described as follows: 1. Location: Lower pole left lobe. Size: 0.35 x 0.25 x 0.37 cm, volume 0.02 mL. Nodule characteristics: Composition: Cystic(0). Echogenicity: Anechoic (0). Shape: Not taller than wide (0). Margins: Smooth (0). Echogenic Foci: None (0). ACR TI-RADS total points: 0 ACR TI-RADS category: 1 NODES: No lymphadenopathy is seen in the tissue surrounding the thyroid gland. US/US thyroid IMPRESSION: ACR TI RADS category 1. ACR TI-RADS RECOMMENDATION REFERENCE: Ultrasound-guided fine-needle aspiration, followup ultrasound, no further follow up. * TR1 (0 point) and TR2 (2 points): No FNA or follow up. * TR3 (3 points): FNA if more than or equal to 2.5 cm in maximum dimension, followup ultrasound in 1, 3 and 5 years if 1.5 to 2.4 cm in maximum dimension. * TR4 (4-6 points): FNA if more than or equal to 1.5 cm in maximum dimension, followup ultrasound in 1, 2, 3 and 5 years if 1 to 1.4 cm in maximum dimension. * TR5 (more than or equal to 7 points): FNA if more than or equal to 1 cm in maximum dimension, followup ultrasound every year for 5 years if 0.5 to 0.9 cm in maximum dimension. * TR3, TR4 or TR5 nodules that are below the size threshold for followup receive no follow up. Electronically signed by: Esequiel Bazan MD 06/12/2025 03:28 PM [facility]
--- OUTSIDE RECORDS SUMMARY | 2025-06-12 18:14 | XMS_ITS | Clinical Summary ---
Author Organization [facility] Address [address] [place] [address] Phone Care Team Providers Care Refractory Bricklayer Name Role Phone Nerissa Herrmann NP Unavailable [phone] Rao Tidwell DO Unavailable Patrick Sanderson MD Unavailable Rao Tidwell DO Primary Care Provider Allergies Active Allergy Reactions Criticality Noted Date Comments Bee Venom Protein (Honey Bee) Unknown 2016 Oxycodone-Acetaminophen Dizziness 08/13/2016 Duoujrpsd-Zqsqosfylq-Coekuc 05/27/20 23 Watermelon ONLY Shellfish Anaphylaxis High [...] If nl, can repeat in 3 years. Immunizations Immunization Administration Dates Next Due COVID-19 [...] TOBACCO SCREENING 03/06/2026 03/06/2025 MAMMOGRAM 10/06/2026 10/06/2024, 010 02/2024, 06/30/2022, Additional history exists HEPATITIS A [...] be notified of the results and recommendations. us Rao Tidwell DO IMG MG EXAMS Final Result * Pap Smear (04/17/2022 12:00 AM EDT) 04/17/2022 04/18/2022 9:4 0 AM EDT Narrative SEE NARRATIVE - 04/24/2022 2:20 [place] [address] Bioinformatics Assistant: Kelsea Mendoza MD STAFF NURSE MIDWIFE Cytology Report FINAL DIAGNOSIS A. PAP SMEAR [...] 52, 56, 58, 59, 66, 68) by [employer]onz[employer] Onclarity HR-HPV analysis. Clinical correlation is advised. This HPV test was performed at [facility], [address] [place] [address]. This test has been FDA approved for SurePath cervical cytology specimens. The accuracy and precision of this test for all other specimen sources has been verified in the Cytopathology Laboratory of the [facility] and has not been cleared or approved by the U.S. Food and Drug Administration. Clinical correlation is advised. CLINICAL HISTORY Date of Last Menstrual Period: Not Provided Menstrual History: Bleeding, Irregular Treatment History: LEEP: 2015 Other Clinical Conditions: Screening Pap SPECIMEN SOURCE A: PAP SMEAR (SUREPATH) CE Patient Name: VERONICA HUSTONDI : 1975 (Age: 46) Sex: F Institution: [facility] Location: [facility] Date of Collection: 04/17/2022 Date of Reported: 04/24/2022 14:20 Results to: Patrick Sanderson MD, BS Patrick Sanderson MD CYTOLOGY ORDERABLES Final Res ult SEE NARRATIVE from Last 3 Months or Most Recently Relevant to Health Maintenance Insurance AETNA O POS EPO AETNA HMO POS EPO AET HMO POS EPO [facility] EPO AETNA O POS EPO AETNA HMO POS EPO AETNA HMO POS EPO Care Teams Refractory Bricklayer Relationship Specialty Start Date End Date Rao Tidwell DO [address] [place] [address] PCP - General 07/16/17 Nerissa Herrmann NP [address] [place] [address] [email or web address] Historical LMR Provider 05/02/17 Rao Tidwell DO [address] [place] [address] Historical LMR Provider 05/02/17 Patrick Sanderson MD [address] [place] [address] [email or web address] Historical LMR Provider 05/02/17 Additional Source Comments The information contained in this document represents components of the legal health record. It is not the complete legal health record.[facility]
--- OUTSIDE RECORDS SUMMARY | 2025-06-12 18:14 | XMS_ITS | Encounter Summary ---
Author Organization [facility] Address [address] [place], [place] [address] Phone Care Team Providers Care Tool And Equipment Rental Clerk Name Role Phone Lydia Cool CNM Unavailable Nerissa Herrmann MANAGER COSTING Unavailable [phone] Randi Hernandez MANAGER COSTING Unavailable Collette Rodarte MD Unavailable Rao Tidwell DO Unavailable Leilani Lazo MD Unavailable [phone] Patrick Sanderson MD Unavailable Hallie Carrillo MD Unavailable Elsy Mahmood MD Unavailable Constanza Rodriguez MD Unavailable [phone] Rao Tidwell DO Primary Care Provider Encounter Details Date Type Department Care Team (Late st Contact Info) Description 03/21/2020 Procedure Pass [facility], [address] [phone] Social History Tobacco Use Types Packs/Day Years [...] on filedocumented in this encounter Care Teams Tool And Equipment Rental Clerk Relationship Specialty Start Date End Date Rao Tidwell DO [address] [place] [address] PCP - General 07/16/17 Lydia Cool CNM [address] [place] [address] Historical LMR Provider 05/02/17 2 Nerissa Herrmann NP [address] [place] [address] [email or web address] Historical LMR Provider 05/02/17 Randi Hernandez NP [address] [place] [phone] Historical LMR Provider 05/02/17 2 Collette Rodarte MD [address] [place] [address] Historical LMR Provider 05/02/17 Rao Tidwell DO [address] [place] [address] Historical LMR Provider 05/02/17 Leilani Lazo MD [address] [place] [address] Historical LMR Provider 05/02/17 2 Patrick Sanderson MD [address] [place] [address] [email or web address] Historical LMR Provider 05/02/17 Hallie Carrillo MD [address] [place], [place] Historical LMR Provider 05/02/17 2 Elsy Mahmood MD [address] [place] [address] [email or web address] Historical LMR Provider 05/02/17 07/20/21 Constanza Rodriguez MD [address], [place] [address] Historical LMR Provider 05/02/17 2 documented as of this encounter Additional Source Comments The information contained in this document represents components of the legal health record. It is not the complete legal health record.[facility]
--- OUTSIDE RECORDS SUMMARY | 2025-06-12 18:14 | XMS_ITS | Encounter Summary ---
Author Organization [facility] Address [address] [place] [address] Phone Care Team Providers Care Activities Counselor Name Role Phone Lydia Cool CNM Unavailable Nerissa Herrmann ENVIRONMENTAL PLANNER Unavailable Randi Hernandez ENVIRONMENTAL PLANNER Unavailable Collette Rodarte MD Unavailable Rao Tidwell DO Unavailable Leilani Lazo MD Unavailable [phone] Patrick Sanderson MD Unavailable Hallie Carrillo MD Unavailable Elsy Mamhood MD Unavailable Constanza Rodriguez MD Unavailable [phone] Rao Tidwell DO Primary Care Provider Encounter Details Date Type Department Care Team (Latest Contact Info) Description 04/30/2021 Transcribe Orders Virtual Department [address] [place] [address] Rao Tidwell DO [address] [place] [address] Breast screening (Primary Dx) Social [...] unspecified documented in this encounter Care Teams Activities Counselor Relationship Specialty Start Date End Date Rao Tidwell DO [address] [place] [address] PCP - General 07/16/17 Lydia Cool CNM [address] [place] [address] Historical LMR Provider 05/02/17 2 Nerissa Herrmann NP [address] [place] [address] [email or web address] Historical LMR Provider 05/02/17 Randi Hernandez NP [address] [place] [phone] Historical LMR Provider 05/02/17 2 Collette [place]arte MD [address] [place] [address] Historical LMR Provider 05/02/17 Rao Tidwell DO [address] [place] [address] Historical LMR Provider 05/02/17 Leilani Lazo MD [address] [place] [address] Historical LMR Provider 05/02/17 2 Patrick Sanderson MD [address] [place] [address] Historical LMR Provider 05/02/17 Hallie Carrillo MD [address] [place] [phone] Historical LMR Provider 05/02/17 2 Elsy Mahmood MD [address] [place] [address] [email or web address] Historical LMR Provider 05/02/17 07/20/21 Constanza Rodriguez MD [address] [place] [phone] Historical LMR Provider 05/02/17 2 documented as of this encounter Additional Source Comments The information contained in this document represents components of the legal health record. It is not the complete legal health record.[facility]
--- OUTSIDE RECORDS SUMMARY | 2025-06-12 18:14 | XMS_ITS | Encounter Summary ---
Author Organization [facility] Address [address] [place] [address] Phone Care Team Providers Care Automotive Detailer Name Role Phone Nerissa Herrmann INSURANCE SALES EXECUTIVE Unavailable [phone] Rao Tidwell DO Unavailable [phone] Patrick Sanderson MD Unavailable [phone] Rao Tidwell DO Primary Care Provider [phone] Encounter Details Date Type Department Care Team (Late st Contact Info) Description 05/13/2022 Procedure Pass [facility], [address] [address] Social History Tobacco Use Types Packs/Day Years [...] on filedocumented in this encounter Care Teams Automotive Detailer Relationship Specialty Start Date End Date Rao Tidwell DO [address] [place] [address] PCP - General 07/16/17 Nerissa Herrmann, INSURANCE SALES EXECUTIVE [address] [place] [address] [email or web address] Historical LMR Provider 05/02/17 Rao Tidwell DO [address] [place] [address] Historical LMR Provider 05/02/17 Patrick Sanderson MD [address] [place] [address], [facility] [address] [place] [address] [email or web address] Historical LMR Provider 05/02/17 documented as of this encounter Additional Source Comments The information contained in this document represents components of the legal health record. It is not the complete legal health record.[facility]
--- OUTSIDE RECORDS SUMMARY | 2025-06-12 18:14 | XMS_ITS | Encounter Summary ---
Author Organization [facility] Address [address] [place] [address] Phone Care Team Providers Care Client Technical Support Associate Name Role Phone Otilia Coolara Celso CNM Unavailable Nerissa Herrmann PRECONSTRUCTION MANAGER Unavailable [phone] Randi Hernandez PRECONSTRUCTION MANAGER Unavailable Collette Rodarte MD Unavailable [phone] Rao Tidwell DO Unavailable Leilani Lazo MD Unavailable [phone] Patrick Sanderson MD Unavailable Hallie Carrillo MD Unavailable [phone] Elsy Mahmood MD Unavailable Constanza Rodriguez MD Unavailable [phone] Rao Tidwell DO Primary Care Provider Encounter Details Date Type Department Care Team (Late st Contact Info) Description 03/07/2019 Ancillary Orders Virtual Department [address] [place] [address] Rao Tidwell DO [address] [place], [place] [phone] Breast screening Social History Tobacco Use Types [...] There are scattered fibroglandular densities. POS - [id number] Narrative 05/05/2019 9:12 AM EDT EXAM: BI MAMMOGRAM SCREENING WITH TOMOSYNTHESIS WITH CAD (BILATERAL) HISTORY: Screening. * Annual Breast screening COMPARISON: Prior mammograms including 05/04/2018, 12/11/2016, 10/18/2015. TECHNIQUE: Digital breast tomosynthesis was performed in CC and MLO projections. Reconstructed 2-D C-views generated from the tomosynthesis images. Images interpreted in conjunction with R-2 Image Central Supply Nurse computer-aided detection (CAD). FINDINGS: BREAST COMPOSITION: There [...] There are scattered fibroglandular densities. POS - [id number] Rao Tidwell DO IMG MG EXAMS Final Result documented in this encounter Visit Diagnoses Diagnosis Breast screening Breast screening, unspecified Breast screening Breast screening, unspecified documented in this encounter Care Teams Client Technical Support Associate Relationship Specialty Start Date End Date Rao Tidwell DO [address] [place] [address] PCP - General 07/16/17 Lydia Cool CNM [address] [place] [address] Historical LMR Provider 05/02/17 2 Nerissa Herrmann NP [address] [place] [address] Historical LMR Provider 05/02/17 Randi Hernandez NP [address] [place] [phone] Historical LMR Provider 05/02/17 2 Collette Rodarte MD [address] [place] [address] [place] [address] Historical LMR Provider 05/02/17 Rao Tidwell DO [address] [place] [address] Historical LMR Provider 05/02/17 Leilani Lazo MD [address] [place] [address] Historical LMR Provider 05/02/17 2 Patrick Sanderson MD [address] [address] Historical LMR Provider 05/02/17 Hallie Carrillo MD [address] [place] [phone] Historical LMR Provider 05/02/17 2 Elsy Mahmood MD [address] [address] Historical LMR Provider 05/02/17 07/20/21 Constanza Rodriguez MD [address] [place] [address] Historical LMR Provider 05/02/17 2 documented as of this encounter Additional Source Comments The information contained in this document represents components of the legal health record. It is not the complete legal health record.[facility]
--- OUTSIDE RECORDS SUMMARY | 2025-06-12 18:14 | XMS_ITS | Encounter Summary ---
Author Organization [facility] Address [address] [place] [address] Phone Care Team Providers Care Check Clerk Name Role Phone Lydia Cool CNM Unavailable Nerissa Herrmann NUCLEAR WASTE PROCESS OPERATOR Unavailable [phone] Randi Hernandez NUCLEAR WASTE PROCESS OPERATOR Unavailable Collette Rodarte MD Unavailable Rao Tidwell DO Unavailable Leilani Lazo MD Unavailable [phone] Patrick Sanderson MD Unavailable Hallie Carrillo MD Unavailable Elsy Mahmood MD Unavailable Constanza Rodriguez MD Unavailable [phone] Rao Tidwell DO Primary Care Provider Encounter Details Date Type Department Care Team (Late st Contact Info) Description 04/30/2021 Procedure Pass [facility], [address] [phone] Social History Tobacco Use Types Packs/Day Years [...] on filedocumented in this encounter Care Teams Check Clerk Relationship Specialty Start Date End Date Rao Tidwell DO [address] [place] [address] PCP - General 07/16/17 Lydia Cool CNM [address] [place] [address] Historical LMR Provider 05/02/17 2 Nerissa Herrmann, NUCLEAR WASTE PROCESS OPERATOR [address] [place] [address] [email or web address] Historical LMR Provider 05/02/17 Randi Hernandez NUCLEAR WASTE PROCESS OPERATOR [address] [place] [phone] Historical LMR Provider 05/02/17 2 Collette Rodarte MD [address] [place] [address], [address] [place] [address] Historical LMR Provider 05/02/17 Rao Tidwell DO [address] [place] [address] Historical LMR Provider 05/02/17 Leilani Lazo MD [address] [place] [address] Historical LMR Provider 05/02/17 2 Patrick Sanderson MD [address] [place] [address] [email or web address] Historical LMR Provider 05/02/17 Hallie Carrillo MD [address] [place] [phone] Historical LMR Provider 05/02/17 2 Elsy Mahmood MD [address] [place] [address] [email or web address] Historical LMR Provider 05/02/17 07/20/21 Constanza Rodriguez MD [address] [address] Historical LMR Provider 05/02/17 2 documented as of this encounter Additional Source Comments The information contained in this document represents components of the legal health record. It is not the complete legal health record.[facility]
--- OUTSIDE RECORDS SUMMARY | 2025-06-12 18:14 | XMS_ITS | Encounter Summary ---
Author Organization [facility] Address [address] [place] [address] Phone Care Team Providers Care Director Of Home Health Services Name Role Phone Nerissa Herrmann NP Unavailable [phone] Rao Tidwell DO Unavailable Patrick Sanderson MD Unavailable [phone] Rao Tidwell DO Primary Care Provider Encounter Details Date Type Department Care Team (Late st Contact Info) Description 04/27/2024 Procedure Pass [facility], [facility] [address] [place] [address] Social History Tobacco Use Types Packs/Day Years [...] on filedocumented in this encounter Care Teams Director Of Home Health Services Relationship Specialty Start Date End Date Rao Tidwell DO [address] [place] [address] PCP - General 07/16/17 Nerissa Herrmann NP [address] [place] [address] [email or web address] Historical LMR Provider 05/02/17 Rao Tidwell DO [address] [place] [address] Historical LMR Provider 05/02/17 Patrick Sanderson MD [address] [place] [address] [email or web address] Historical LMR Provider 05/02/17 documented as of this encounter Additional Source Comments The information contained in this document represents components of the legal health record. It is not the complete legal health record.[facility]
--- OUTSIDE RECORDS SUMMARY | 2025-06-12 18:14 | XMS_ITS | Encounter Summary ---
Author Organization [facility] Address [address] [place] [address] Phone Care Team Providers Care Sales Vendor Name Role Phone Nerissa Herrmann NP Unavailable [phone] Rao Tidwell DO Unavailable Patrick Sanderson MD Unavailable [phone] Rao Tidwell DO Primary Care Provider Encounter Details Date Type Department Care Team (Late st Contact Info) Description 05/12/2023 Procedure Pass [facility], [facility] [address] [place] [address] Social History Tobacco Use Types Packs/Day Years [...] on filedocumented in this encounter Care Teams Sales Vendor Relationship Specialty Start Date End Date Rao Tidwell DO [address] [place] [address] PCP - General 07/16/17 Nerissa Herrmann NP [address] [place] [address] [email or web address] Historical LMR Provider 05/02/17 Rao Tidwell DO [address] [place] [address] Historical LMR Provider 05/02/17 Patrick Sanderson MD [address] [place] [address] [email or web address] Historical LMR Provider 05/02/17 documented as of this encounter Additional Source Comments The information contained in this document represents components of the legal health record. It is not the complete legal health record.[facility]
== END 2025-06-12 15:06 | disposition home or self-care (01) ==
LOC: HO.HMGCX 15:05
PROVIDERS: PCP Physician Assistant Medical; Visit Provider Physician Assistant Medical
DX: E04.1 Nontoxic single thyroid nodule (principal)
CPT/HCPCS: 76536

== ENCOUNTER → 2025-06-12 15:06 | Outpatient (BNV) | payer OTHER, SELFPAY | PROVIDERS: PCP Physician Assistant Medical; Visit Provider Radiology Diagnostic Radiology | DX: E04.1 Nontoxic single thyroid nodule (principal) | CPT/HCPCS: 76536 ==

== ENCOUNTER 2025-07-10 15:45 | Outpatient (AMB) | payer OTHER, SELFPAY ==
--- NOTE | 2025-07-10 15:57 | A.OFFPSYCH_ITS ---
Intake Intake Visit Reasons: consultation Logistics Support Required: No Allergies bee venom protein (honey bee) Allergy (Verified 04/11/25 13:21) Anaphylaxis watermelon Allergy (Verified 04/11/25 13:21) Unknown Medication List - Last Reconciled 07/10/25 by Radha Dickinson APRN albuterol sulfate 90 mcg/actuation 1 puff inhalation Q4H PRN atorvastatin 10 mg PO DAILY buspirone 5 mg PO BID PRN diltiazem HCl ER 180 mg PO DAILY ergocalciferol (vitamin D2) (Vitamin D2) 1,250 mcg PO QWEEK hydrochlorothiazide 25 mg PO DAILY hydroxyzine HCl 25 mg PO BID PRN losartan 100 mg PO DAILY nicotine 1 patch transdermal DAILY nicotine (polacrilex) 2 mg buccal Q4H PRN omeprazole 40 mg PO DAILY ondansetron HCl 4 mg PO BID PRN propranolol ER 120 mg PO DAILY sertraline 100 mg PO DAILY trazodone 25 mg PO tretinoin 0.025% appl topical Q3D HPI- Psychiatric Chief Complaint: consultation HPI Narrative: pt referred by PCP for depression, anxiety, panic attacks. Pt is taking zoloft 100mg daily. Her PHQ9= 11 and her GAD7=21. She has high stress in her life which includes her 16 yr old daughter diagnosed with Bipolar disorder and just recently somewhat stabilized in treatment at [facility]. She cares for her adopted great nephew age 3 who was born to her neice who was addicted yo opiates. Pt also lost herolder sister to alcohol related 1 yr ago. Pts mother has stage 4 lung cancer and pts 21 yr old daughter helps take care of her. Pt reports she has a long histroy of anxiety but her mood and anxiety has worsened over the past year to year and a half. THe holiday season is the anniversary of her sister's . Pt has been struggling with feeling down, uninterested in activities, loss of pleasure, poor sleep, low energy, trouble concentrating. She is anxious and nervous every day, worries every day. She has trouble relaxing She can feel very irritbale. She often can't fall asleep due to worrying. Past Psychiatric History: No IPLOC. Pt used to see Albina Garner for psychiatry Subjective Subjective Medication Compliance: Yes Side effects from medications: No Review of Systems Medical Review of Systems: unchanged Mental Status Exam Mental Status Exam Patient Appearance: Well Grooomed and Appropriate Patient Orientation: Person, Place, Time and Situation Level of Consciousness: Awake, Appropriate, Restless and Alert Patient Behavior: Guarded, Cooperative and Anxious Mood Description: Withdrawn, Depressed, Anxious and Sad Affect Description: Withdrawn, Constricted, Depressed and Sad Patient Cognition Impaired: No Ability to Follow Directions: Good Speech Pattern: Clear, Soft-Spoken and Delayed Memory Description: Intact Hallucinations: None Delusions: Not Present Thought Process: Intact and Goal Oriented Thought Content: positive for Intact and positive for Goal Oriented Judgement: Good Assessment and Plan Assessment & Plan (1) Major depressive disorder, recurrent, moderate: Status: Acute Code(s): F33.1 - Major depressive disorder, recurrent, moderate (2) Generalized anxiety disorder with panic attacks: Status: Acute Code(s): F41.1 - Generalized anxiety disorder; F41.0 - Panic disorder [episodic paroxysmal anxiety] Plan encourge patient to get ordered blood work done increase zoloft to 150mg daily x 3 weeks then increase to 200mg daily; take zoloft with food to reduce GI upset; okay to split dose to 100mg twice a day and take with food to reduce GI upset take hydroxyzine to sleep if needed as pt feel trazodone may make her sleep too deeply with 3 yr old home Medications: Changed From sertraline 100 mg PO DAILY To sertraline Take 1.5 tablets (150mg ) daily x 3 weeks then take 2 tablets (200mg ) daily thereafter orally daily; 180 tabs 0RF Counseling and coordination of Care Pt. Self Management counseling: Mod caffeine/ETOH intake, Nutrition education and improvement and Sleep hygiene Medication management counseling: Effectiveness, Side effects, Dosing range, Duration, Drug interaction and Adherence Diagnosis and Prognosis Counseling: Accuracy of diagnosis, Prognosis over time, Impact of diagnosis on life functions and Adequacy of current interventions Details: I spent 65 minutes reviewing the record, seeing the patient and documenting in the medical record. Counseling provided to the patient/caregiver as outlined below. Addressed patient/caregiver concerns regarding current medication regime including effective adherence. Addressed patient/caregiver concerns regarding diagnosis and prognosis including accuracy of diagnosis, prognosis over time, impact of diagnosis. Addressed patient/caregiver concerns regarding impact of recent stressors. [facility] Medical History (Updated 07/10/25 @ 16:46 by Radha Dickinson APRN) Tachyarrhythmia COPD (chronic obstructive pulmonary disease) IBS (irritable bowel syndrome) Kidney calculi Panic attack GERD (gastroesophageal reflux disease) Asthma HTN (hypertension) Thyroid nodule History of mammogram (~09/20/24) Preventative health care Asthma Colonic polyp Hiatal hernia Depression Anxiety Annual physical exam Surgical History (Updated 07/10/25 @ 11:18 by Alana Pope) Hx of wisdom tooth extraction History of ear surgery Hx of endoscopy Hx of colonoscopy (~07/24/22) Family History (System 04/11/25 @ 13:21 by Carlos Manuel Epps) Mother Vascular disease Mother No problems noted. Father Stroke Social History (System 04/11/25 @ 13:21 by Carlos Manuel Epps) Household Members: Family Housing: House Are you a primary farm or ranch animal caretaker to a significant other at home: No Do you presently have visiting nurse or other home services: No Patient Tobacco Use Status: Current everyday Tobacco user Cigarettes Per Day: 20 service: No Current occupational status: employed Cognitive needs: No Hearing needs: No Vision needs: No Coding Level of Care Code Psych Diag Eval w/Med (28114) Diagnoses Major depressive disorder, recurrent, moderate F33.1 Generalized anxiety disorder with panic attacks F41.1; F41.0
--- OUTSIDE RECORDS SUMMARY | 2025-07-10 17:42 | XMS_ITS | Encounter Summary ---
Author Organization [facility] Address [address] [place] [address] Phone Care Team Providers Care Cavity Pump Operator Name Role Phone Lydia Cool CNM Unavailable Nerissa Herrmann LINE O SCRIBE OPERATOR Unavailable [phone] Randi Hernandez LINE O SCRIBE OPERATOR Unavailable Collette Rodarte MD Unavailable Rao Tidwell DO Unavailable Leilani Lazo MD Unavailable [phone] Patrick Sanderson MD Unavailable Hallie Carrillo MD Unavailable Elsy Mahmood MD Unavailable Constanza Rodriguez MD Unavailable [phone] Rao Tidwell DO Primary Care Provider Encounter Details Date Type Department Care Team (Late st Contact Info) Description 04/30/2021 Procedure Pass [facility], [address] [phone] Social History Tobacco Use Types Packs/Day Years [...] on filedocumented in this encounter Care Teams Cavity Pump Operator Relationship Specialty Start Date End Date Rao Tidwell DO [address] [place] [address] PCP - General 07/16/17 Lydia Cool CNM [address] [place] [address] Historical LMR Provider 05/02/17 2 Nerissa Herrmann, LINE O SCRIBE OPERATOR [address] [place] [address] [email or web address] Historical LMR Provider 05/02/17 Randi Hernandez LINE O SCRIBE OPERATOR [address] [place] [phone] Historical LMR Provider 05/02/17 2 Collette Rodarte MD [address] [place] [address], [address] [place] [address] Historical LMR Provider 05/02/17 Rao Tidwell DO [address] [place] [address] Historical LMR Provider 05/02/17 Leilani Lazo MD [address] [place] [address] Historical LMR Provider 05/02/17 2 Patrick Sanderson MD [address] [place] [address] [email or web address] Historical LMR Provider 05/02/17 Hallie Carrillo MD [address] [place] [phone] Historical LMR Provider 05/02/17 2 Elsy Mahmood MD [address] [place] [address] [email or web address] Historical LMR Provider 05/02/17 07/20/21 Constanza Rodriguez MD [address], [place] [address] Historical LMR Provider 05/02/17 2 documented as of this encounter Additional Source Comments The information contained in this document represents components of the legal health record. It is not the complete legal health record.[facility]
--- OUTSIDE RECORDS SUMMARY | 2025-07-10 17:42 | XMS_ITS | Encounter Summary ---
Author Organization [facility] Address [address] [place] [address] Phone Care Team Providers Care Senior Internal Auditor Name Role Phone Nerissa Herrmann NURSING TECHNICIAN Unavailable [phone] Rao Tidwell DO Unavailable [phone] Patrick Sanderson MD Unavailable [phone] Rao Tidwell DO Primary Care Provider Encounter Details Date Type Department Care Team (Late st Contact Info) Description 05/13/2022 Procedure Pass [facility], [address] [address] Social History Tobacco Use Types Packs/Day Years [...] on filedocumented in this encounter Care Teams Senior Internal Auditor Relationship Specialty Start Date End Date Rao Tidwell DO [address] [place] [address] PCP - General 07/16/17 Nerissa Herrmann, NURSING TECHNICIAN [address] [place] [address] [email or web address] Historical LMR Provider 05/02/17 Rao Tidwell DO [address] [place] [address] Historical LMR Provider 05/02/17 Patrick Sanderson MD [address] [place] [address], [facility] [address] [place] [address] [email or web address] Historical LMR Provider 05/02/17 documented as of this encounter Additional Source Comments The information contained in this document represents components of the legal health record. It is not the complete legal health record.[facility]
--- OUTSIDE RECORDS SUMMARY | 2025-07-10 17:42 | XMS_ITS | Encounter Summary ---
Author Organization [facility] Address [address] [place], [place] [phone] Phone Care Team Providers Care Educational Technologist Name Role Phone Lydia Cool CNM Unavailable Nerissa Herrmann PEDIATRIC PHYSICAL THERAPIST Unavailable [phone] Randi Hernandez PEDIATRIC PHYSICAL THERAPIST Unavailable Collette Rodarte MD Unavailable Rao Tidwell DO Unavailable Leilani Lazo MD Unavailable [phone] Patrick Sanderson MD Unavailable Hallie Carrillo MD Unavailable Elsy Mahmood MD Unavailable Constanza Rodriguez MD Unavailable [phone] Rao Tidwell DO Primary Care Provider Encounter Details Date Type Department Care Team (Late st Contact Info) Description 03/21/2020 Procedure Pass [facility], [address] [phone] Social History Tobacco Use Types Packs/Day Years [...] on filedocumented in this encounter Care Teams Educational Technologist Relationship Specialty Start Date End Date Rao Tidwell DO [address] [place] [address] PCP - General 07/16/17 Lydia Cool CNM [address] [place] [address] Historical LMR Provider 05/02/17 2 Nerissa Herrmann NP [address] [place] [address] [email or web address] Historical LMR Provider 05/02/17 Randi Hernandez NP [address] [place] [phone] Historical LMR Provider 05/02/17 2 Collette Rodarte MD [address] [place] [address] Historical LMR Provider 05/02/17 Rao Tidwell DO [address] [place] [address] Historical LMR Provider 05/02/17 Leilani Lazo MD [address] [place] [address] Historical LMR Provider 05/02/17 2 Patrick Sanderson MD [address] [place] [address] [email or web address] Historical LMR Provider 05/02/17 Hallie Carrillo MD [address] [place], [place] Historical LMR Provider 05/02/17 2 Elsy Mahmood MD [address] [place] [address] [email or web address] Historical LMR Provider 05/02/17 07/20/21 Constanza Rodriguez MD [address] [address] Historical LMR Provider 05/02/17 2 documented as of this encounter Additional Source Comments The information contained in this document represents components of the legal health record. It is not the complete legal health record.[facility]
--- OUTSIDE RECORDS SUMMARY | 2025-07-10 17:42 | XMS_ITS | Encounter Summary ---
Author Organization [facility] Address [address] [place] [address] Phone Care Team Providers Care Nibbler Operator Name Role Phone Lydia Cool CNM Unavailable Nerissa Herrmann ROLLER SETTER Unavailable [phone] Randi Hernandez ROLLER SETTER Unavailable Collette Rodarte MD Unavailable Rao Tidwell DO Unavailable Leilani Lazo MD Unavailable [phone] Patrick Sanderson MD Unavailable Hallie Carrillo MD Unavailable Elsy Mahmood MD Unavailable Constanza Rodriguez MD Unavailable [phone] Rao Tidwell DO Primary Care Provider Encounter Details Date Type Department Care Team (Latest Contact Info) Description 04/30/2021 Transcribe Orders Virtual Department [address] [place] [address] Rao Tidwell DO [address] [place] [address] Breast screening (Primary Dx) Social [...] unspecified documented in this encounter Care Teams Nibbler Operator Relationship Specialty Start Date End Date Rao Tidwell DO [address] [place] [address] PCP - General 07/16/17 Lydia Cool CNM [address] [place] [address] Historical LMR Provider 05/02/17 2 Nerissa Herrmann NP [address] [place] [address] [email or web address] Historical LMR Provider 05/02/17 Randi Hernandez NP [address] [place] [phone] Historical LMR Provider 05/02/17 2 Collette Rodarte MD [address] [place] [address] Historical LMR Provider 05/02/17 Rao Tidwell DO [address] [place] [address] Historical LMR Provider 05/02/17 Leilani Lazo MD [address] [place] [address] Historical LMR Provider 05/02/17 2 Patrick Sanderson MD [address] [place] [address] Historical LMR Provider 05/02/17 Hallie Carrillo MD [address] [place] [phone] Historical LMR Provider 05/02/17 2 Elsy Mahmood MD [address] [place] [address] [email or web address] Historical LMR Provider 05/02/17 07/20/21 Constanza Rodriguez MD [address] [place] [phone] Historical LMR Provider 05/02/17 2 documented as of this encounter Additional Source Comments The information contained in this document represents components of the legal health record. It is not the complete legal health record.[facility]
--- OUTSIDE RECORDS SUMMARY | 2025-07-10 17:42 | XMS_ITS | Encounter Summary ---
Author Organization [facility] Address [address] [place] [address] [place] [address] Phone Care Team Providers Care Substitute School Nurse Name Role Phone Real, Nerissa Vaibhav BRIGHT Unavailable [phone] Rao Tidwell DO Unavailable [phone] Patrick Sanderson MD Unavailable [phone] aRo Tidwell DO Primary Care Provider Encounter Details Date Type Department Care Team (Latest Contact Info) Description 05/12/2023 Transcribe Orders Virtual Department [address] [place] [address] Rao Tidwell, [address] [place] [address] Breast screening (Primary Dx) Social History Tobacco [...] unspecified documented in this encounter Care Teams Substitute School Nurse Relationship Specialty Start Date End Date Rao Tidwell DO [address] [place] [address] PCP - General 07/16/17 Nerissa Herrmann NP [address] [place] [address] [email or web address] Historical LMR Provider 05/02/17 Rao Tidwell DO [address] [place] [address] Historical LMR Provider 05/02/17 Patrick Sanderson MD [address] [place] [address] [email or web address] Historical LMR Provider 05/02/17 documented as of this encounter Additional Source Comments The information contained in this document represents components of the legal health record. It is not the complete legal health record.[facility]
--- OUTSIDE RECORDS SUMMARY | 2025-07-10 17:42 | XMS_ITS | Encounter Summary ---
Author Organization [facility] Address [address] [place] [address] Phone Care Team Providers Care Guide Tour Name Role Phone Otilia Coolara Celso CNM Unavailable Nerissa Herrmann COSMETOLOGY PROFESSOR Unavailable [phone] Randi Hernandez COSMETOLOGY PROFESSOR Unavailable Collette Rodarte MD Unavailable [phone] Rao Tidwell DO Unavailable Leilani Lazo MD Unavailable [phone] Patrick Sanderson MD Unavailable [phone] Hallie Carrillo MD Unavailable [phone] Elsy Mahmood MD Unavailable Constanza Rodriguez MD Unavailable [phone] Rao Tidwell DO Primary Care Provider Encounter Details Date Type Department Care Team (Late st Contact Info) Description 03/07/2019 Ancillary Orders Virtual Department 30 [place] [address] Rao Tidwell DO [address] [place], [place] [id number] Breast screening Social History Tobacco Use Types [...] There are scattered fibroglandular densities. POS - [id number] Narrative 05/05/2019 9:12 AM EDT EXAM: BI MAMMOGRAM SCREENING WITH TOMOSYNTHESIS WITH CAD (BILATERAL) HISTORY: Screening. * Annual Breast screening COMPARISON: Prior mammograms including 05/04/2018, 12/11/2016, 10/18/2015. TECHNIQUE: Digital breast tomosynthesis was performed in CC and MLO projections. Reconstructed 2-D C-views generated from the tomosynthesis images. Images interpreted in conjunction with R-2 Image Grain Origination Specialist computer-aided detection (CAD). FINDINGS: BREAST COMPOSITION: There [...] There are scattered fibroglandular densities. POS - [id number] Rao Tidwell DO IMG MG EXAMS Final Result documented in this encounter Visit Diagnoses Diagnosis Breast screening Breast screening, unspecified Breast screening Breast screening, unspecified documented in this encounter Care Teams Guide Tour Relationship Specialty Start Date End Date Rao Tidwell DO [address] [place] [address] PCP - General 07/16/17 Lydia Cool CNM [address] [place] [address] Historical LMR Provider 05/02/17 2 Nerissa Herrmann NP [address] [place] [address] Historical LMR Provider 05/02/17 Randi Hernandez NP [address] [place] [phone] Historical LMR Provider 05/02/17 2 Collette Rodarte MD [address] [place] [address] [place] [address] Historical LMR Provider 05/02/17 Rao Tidwell DO [address] [place] [address] Historical LMR Provider 05/02/17 Leilani Lazo MD [address] [place] [address] Historical LMR Provider 05/02/17 2 Patrick Sanderson MD [address] [address] Historical LMR Provider 05/02/17 Hallie Carrillo MD [address] [place] [phone] Historical LMR Provider 05/02/17 2 Elsy Mahmood MD [address] [address] Historical LMR Provider 05/02/17 07/20/21 Constanza Rodriguez MD [address] [place] [address] Historical LMR Provider 05/02/17 2 documented as of this encounter Additional Source Comments The information contained in this document represents components of the legal health record. It is not the complete legal health record.[facility]
--- OUTSIDE RECORDS SUMMARY | 2025-07-10 17:42 | XMS_ITS | Encounter Summary ---
Author Organization [facility] Address [address] [place] [address] Phone Care Team Providers Care Cyber Engineer Name Role Phone Nerissa Herrmann NP Unavailable [phone] Rao Tidwell DO Unavailable Patrick Sanderson MD Unavailable [phone] Rao Tidwell DO Primary Care Provider Encounter Details Date Type Department Care Team (Late st Contact Info) Description 04/27/2024 Procedure Pass [facility], [facility] 30 [place] [address] Social History Tobacco Use Types Packs/Day Years [...] on filedocumented in this encounter Care Teams Cyber Engineer Relationship Specialty Start Date End Date Rao Tidwell DO [address] [place] [address] PCP - General 07/16/17 Nerissa Herrmann NP [address] [place] [address] [email or web address] Historical LMR Provider 05/02/17 Rao Tidwell DO [address] [place] [address] Historical LMR Provider 05/02/17 Patrick Sanderson MD [address] [place] [address] [email or web address] Historical LMR Provider 05/02/17 documented as of this encounter Additional Source Comments The information contained in this document represents components of the legal health record. It is not the complete legal health record.[facility]
--- OUTSIDE RECORDS SUMMARY | 2025-07-10 17:42 | XMS_ITS | Encounter Summary ---
Author Organization [facility] Address [address] [place] [address] Phone Care Team Providers Care Signal Supervisor Name Role Phone Nerissa Herrmann NP Unavailable [phone] Rao Tidwell DO Unavailable Patrick Sanderson MD Unavailable [phone] Rao Tidwell DO Primary Care Provider Encounter Details Date Type Department Care Team (Late st Contact Info) Description 05/12/2023 Procedure Pass [facility], [facility] 30 [place] [address] Social History Tobacco Use Types Packs/Day Years [...] on filedocumented in this encounter Care Teams Signal Supervisor Relationship Specialty Start Date End Date Rao Tidwell DO [address] [place] [address] PCP - General 07/16/17 Nerissa Herrmann NP [address] [place] [address] [email or web address] Historical LMR Provider 05/02/17 Rao Tidwell DO [address] [place] [address] Historical LMR Provider 05/02/17 Patrick Sanderson MD [address] [place] [address] [email or web address] Historical LMR Provider 05/02/17 documented as of this encounter Additional Source Comments The information contained in this document represents components of the legal health record. It is not the complete legal health record.[facility]
--- OUTSIDE RECORDS SUMMARY | 2025-07-10 17:42 | XMS_ITS | Clinical Summary ---
Author Organization [facility] Address [address] [place] [address] Phone Care Team Providers Care Community Health Program Coordinator Name Role Phone Nerissa Herrmann NP Unavailable [phone] Rao Tidwell DO Unavailable Patrick Sanderson MD Unavailable [phone] Rao Tidwell DO Primary Care Provider Allergies Active Allergy Reactions Criticality Noted Date Comments Bee Venom Protein (Honey Bee) Unknown 2016 Oxycodone-Acetaminophen Dizziness 08/13/2016 Cvbhmdkpl-Oahjbzgkdq-Inggeg 05/27/20 23 Watermelon ONLY Shellfish Anaphylaxis High [...] SEE NARRATIVE - 04/24/2022 2:20 [place] [address] Brand Planner: Kelsea Mendoza MD PERSONNEL TECHNICIAN Cytology Report FINAL DIAGNOSIS A. PAP SMEAR [...] 52, 56, 58, 59, 66, 68) by [employer] Onclarity HR-HPV analysis. Clinical correlation is advised. This HPV test was performed at [facility], [address] [place] [address]. This test has been FDA approved for SurePath cervical cytology specimens. The accuracy and precision of this test for all other specimen sources has been verified in the Cytopathology Laboratory of the [facility] and has not been cleared or approved by the U.S. Food and Drug Administration. Clinical correlation is advised. CLINICAL HISTORY Date of Last Menstrual Period: Not Provided Menstrual History: Bleeding, Irregular Treatment History: LEEP: 2015 Other Clinical Conditions: Screening Pap SPECIMEN SOURCE A: PAP SMEAR (SUREPATH) CE Patient Name: VERONICA HUSTONDI : 1975 (Age: 46) Sex: F Institution: [facility] Location: [facility] Date of Collection: 04/17/2022 Date of Reported: 04/24/2022 14:20 Results to: Patrick Sanderson MD, BS Patrick Sanderson MD CYTOLOGY ORDERABLES Final Res ult SEE NARRATIVE from Last 3 Months or Most Recently Relevant to Health Maintenance Insurance AETNA O POS EPO AETNA HMO POS EPO AET HMO POS EPO AETNA HMO POS [facility]PO [facility] POS EPO AETNA O POS EPO AETNA HMO POS EPO AETNA HMO POS EPO Care Teams Community Health Program Coordinator Relationship Specialty Start Date End Date Rao Tidwell DO [address] [place] [address] PCP - General 07/16/17 Nerissa Herrmann NP [address] [place] [address] [email or web address] Historical LMR Provider 05/02/17 Rao Tidwell DO [address] [place] [address] Historical LMR Provider 05/02/17 Patrick Sanderson MD [address] [place] [address] [email or web address] Historical LMR Provider 05/02/17 Additional Source Comments The information contained in this document represents components of the legal health record. It is not the complete legal health record.[facility]
== END 2025-07-10 17:04 | disposition home or self-care (01) ==
LOC: HO.HOP 15:45
PROVIDERS: PCP Physician Assistant Medical; Visit Provider Clinical Nurse Specialist Psychiatric/Mental Health
DX: F33.1 Major depressive disorder, recurrent, moderate (principal); F41.1 Generalized anxiety disorder; F41.0 Panic disorder [episodic paroxysmal anxiety]
CPT/HCPCS: 90792

== ENCOUNTER → 2025-07-10 15:45 | Outpatient (BNVA) | payer OTHER, SELFPAY | PROVIDERS: PCP Physician Assistant Medical; Visit Provider Clinical Nurse Specialist Psychiatric/Mental Health | DX: F33.1 Major depressive disorder, recurrent, moderate (principal); F41.1 Generalized anxiety disorder; F41.0 Panic disorder [episodic paroxysmal anxiety]; Z79.899 Other long term (current) drug therapy | CPT/HCPCS: 90792 ==

== ENCOUNTER 2025-07-11 10:06 | Outpatient (AMB) | payer OTHER, SELFPAY ==
[2025-07-11 10:07] VITALS: BP 85/53; PULSE 82; RESP 14; TEMP 36.4; O2SAT 98; BMI 27.1
--- NOTE | 2025-07-11 10:07 | A.OFFPC_ITS ---
Vital Signs 07/11/25 10:07 07/11/25 10:14 Height 5 ft 5.2 in Weight 164 lb BMI 27.1 BP 85/53 L 98/54 L Blood Pressure Location Rt brachial Lt brachial Position Sitting Sitting Respiration 14 Pulse 82 Pulse Source Pulse Oximeter Temp 97.6 F Temp Source Temporal Artery Scan Pulse Oximetry (%) 98 Oxygen Delivery Method Room Air Intake Visit Reasons: Urinary tract infection Cargo Trimmer Required: No Accompanied by: Self / Same As Patient Allergies bee venom protein (honey bee) Allergy (Verified 07/11/25 10:29) Anaphylaxis watermelon Allergy (Verified 07/11/25 10:29) Unknown Medication List - Last Reconciled 07/11/25 by Nikunj Mendez MD albuterol sulfate 90 mcg/actuation 1 puff inhalation Q4H PRN atorvastatin 10 mg PO DAILY buspirone 5 mg PO BID PRN diltiazem HCl ER 180 mg PO DAILY ergocalciferol (vitamin D2) (Vitamin D2) 1,250 mcg PO QWEEK hydrochlorothiazide 25 mg PO DAILY hydroxyzine HCl 25 mg PO BID PRN losartan 100 mg PO DAILY omeprazole 40 mg PO DAILY ondansetron HCl 4 mg PO BID PRN phenazopyridine (Pyridium) 200 mg PO TID 3 days propranolol ER 120 mg PO DAILY sertraline Take 1.5 tablets (150mg ) daily x 3 weeks then take 2 tablets (200mg ) daily thereafter orally daily; sulfamethoxazole-trimethoprim 800-160 mg (Bactrim DS) 1 tab PO BID 7 days trazodone 25 mg PO Tobacco use date assessed: 04/11/25 Dental Screening Dental Screen Date: 04/11/25 HPI HPI Comments History of Present Illness Details History of Present Illness - The patient is a 50 year old female wh o presents with complaints of urinary frequency, burning, and dark urine, which started on Thursday. - She denies any associated fever, chill s, or vaginal discharge. - The patient has a known allergy to ruthy ermelon. - Regarding her past medical history, th e patient had previous ultrasounds of her thyroid and salivary gland. - The thyroid ultrasound was normal, whi le the head and neck ultrasound revealed a salivary gland cyst and lymph nodes, which were deemed not worrisome. - She was not informed of any required f ollow-up for these findings. Social History Results - Labs: Urinalysis was positive for a ur inary tract infection. - Imaging: A previous thyroid ultrasound was normal. - A previous head and neck ultrasound sh owed lymph nodes and a salivary gland cyst, which were not concerning. [facility] Medical History Tachyarrhythmia COPD (chronic obstructive pulmonary disease) IBS (irritable bowel syndrome) Kidney calculi Panic attack GERD (gastroesophageal reflux disease) Asthma HTN (hypertension) Thyroid nodule History of mammogram (~09/20/24) Preventative health care Asthma Colonic polyp Hiatal hernia Depression Anxiety Annual physical exam Surgical History Hx of wisdom tooth extraction History of ear surgery Hx of endoscopy Hx of colonoscopy (~07/24/22) Family History Mother Vascular disease Mother No problems noted. Father Stroke Social History Household Members: Family Housing: House Are you a primary rn primary care to a significant other at home: No Do you presently have visiting nurse or other home services: No Patient Tobacco Use Status: Current everyday Tobacco user Cigarettes Per Day: 20 service: No Current occupational status: employed Cognitive needs: No Hearing needs: No Vision needs: No Questionnaire PHQ-9 Over the last 2 weeks, how often have you been bothered by any of the following problems? 1. Little interest or pleasure in doing things: nearly every day 2. Feeling down, depressed, or hopeless: nearly every day 3. Trouble falling or staying asleep, or sleeping too much: nearly every day 4. Feeling tired or having little energy: nearly every day 5. Poor appetite or overeating: not at all 6. Feeling bad about yourself - or that you are a failure or have let yourself or your family down: not at all 7. Trouble concentrating on things, such as reading the newspaper or watching television: not at all 8. Moving or speaking so slowly that other people could have noticed. Or the opposite - being so fidgety or restless that you have been moving around a lot more than usual: not at all 9. Thoughts that you would be better off or of hurting yourself in some way: not at all Total score: 12 Depression Screening Interpretation: Positive Depression Screening Follow-up: Existing condition, New Medication prescribed and Other (Referral to therapist and psychiatrist ordered at this time and PRN Ativan 0.5 mg 15 tablets for a 30 day course) Depression Screening Done: Yes 51286 - PHQ-9 Billing: Yes Source: Developed by Drs. Rao Veronica, Lavonne Flores, Ishan Gallegos and colleagues, with an educational arjun from [employer]. Thrive Questionnaire Date Thrive assessed: 04/11/25 I am a: Patient What is your living situation today?: I have a steady place to live Within the past 12 months, did the food you bought not last and you didn't have the money to get more?: Never true Within the past 12 months, did you worry whether your food would run out before you got money to buy more?: Never true Do you have trouble paying for medicines?: No Do you have trouble getting transportation to medical appointments?: No Do you have trouble paying your heating and electricity bill?: No Do you have trouble taking care of your child, family member or friend?: No Do you have trouble with day-to-day activities such as bathing, preparing meals, shopping, managing finances, etc.?: No Are you currently unemployed and looking for a job?: No Are you interested in more education?: No Please select the resources that you would like help with: None THRIVE Score: 0 AUDIT C Alcohol Use Questionnaire (AUDIT-C) 1. How often do you have a drink containing alcohol?: Monthly or less 2. How many drinks containing alcohol do you have on a typical day when you are drinking?: 1 or 2 Total Score: 1 Score Reviewed/Action Taken: No YUDITH-7 AMB Questionnaire YUDITH-7 Date YUDITH - 7 assessed: 04/11/25 Feeling nervous, anxious, or on edge: 3 = Nearly every day Not being able to stop or control worryin = Nearly every day Worrying too much about different things: 0 = Not at all Trouble relaxin = Nearly every day Being so restless that it is hard to sit still: 3 = Nearly every day Becoming easily annoyed or irritable: 3 = Nearly every day Feeling afraid as if something awful might happen: 0 = Not at all Total YUDITH-7 score (0-4 normal; 5-9 mild; 10-14 moderate; 15-21 severe): 15 Source: Developed by Drs. Rao Veronica, Lavonne Flores, Ishan Gallegos and colleagues, with an educational arjun from [employer]. YUDITH-7 Assessment Billing YUDITH-7 Assessment Tool: YUDITH-7 Assessment 49327 Review of Systems Narrative Review of Systems - Genitourinary: Reports urinary frequency, dysuria, and dark urine since Thursday. - Denies vaginal discharge. - Constitutional: Denies fevers and chills. - Neck: Reports persistent swelling. Physical exam (Primary Care) Vital Signs: Last Vital Signs Temp 97.6 F 07/11/25 10:07 Pulse 82 07/11/25 10:07 Resp 14 07/11/25 10:07 BP 98/54 L 07/11/25 10:14 Pulse Ox 98 07/11/25 10:07 Oxygen Delivery Method Room Air 07/11/25 10:07 BMI result Body Mass Index 27.1 Tobacco/Smoking Status: Tobacco use Status Tobacco use date assessed 04/11/25 07/11/25 10:15 Patient Tobacco Use Status Current everyday Tobacco 07/11/25 10:15 PHQ-9: PHQ-9 Score PHQ-9: Total score 12 07/11/25 10:15 Depression Screening Interpretation: Positive Depression Screening Follow-up: Existing condition, New Medication prescribed and Other (Referral to therapist and psychiatrist ordered at this time and PRN Ativan 0.5 mg 15 tablets for a 30 day course) Thrive Assessment: Date of Thrive Assessment Date Thrive assessed 04/11/25 07/11/25 10:15 Narrative Physical Exam General: Appearance normal, both eyes and all related structures Nutritional Appearance: Well nourished Orientation/consciousness: Patient oriented x3 Limitations: No limitations Head: Normal to inspection, lymph nodes present but nothing to worry about Neck: Normal visual inspection, lymph nodes present but nothing to worry about Chest: Normal palpation of entire chest wall Respiratory: Normal respiratory effort Neurology: Patient oriented x3 Coding Level of Care Code Est Pt Level 3 (39470) Add On Problem Visit Only Diagnoses Urinary tract infection N39.0 Additional Codes YUDITH-7 Assessment Billing - YUDITH-7 Assessment Tool: YUDITH-7 Assessment 45570 ([id number]) PHQ-9 - 58711 - PHQ-9 Billing: Yes ([id number]) Assessment & Plan Assessment & Plan (1) Urinary tract infection: Code(s): N39.0 - Urinary tract infection, site not specified Plan Plan - For the urinary tract infection, a 7-day course of Bactrim has been prescribed. - For symptomatic relief of bladder irritation, Pyridium has also been prescribed. - Both prescriptions have been sent to the pharmacy at [address] [place] [address] in [place]. - Regarding the neck swelling, previous ultrasound results were reviewed and a physical exam was performed, with findings determined to be non-worrisome. - The neck will be re-evaluated at a future visit. Discussion Notes I informed the patient that her urinalysis was positive for a bladder infection. I have prescribed two medications: Bactrim, an antibiotic to be taken for seven days, and Pyridium for symptomatic relief of bladder irritation. I counseled her that Pyridium will cause her urine to turn orange, and this is an expected side effect that will resolve upon discontinuation of the medication. I confirmed with her that she can continue taking all of her other current medications. The prescriptions were sent to her preferred pharmacy. We also reviewed her prior ultrasound results of the thyroid and neck. I explained that the findings, including a salivary gland cyst and lymph nodes, were not worrisome. My physical examination of her neck showed that the swelling has become less firm, and I reassured her that this is not concerning. I advised that I will re-examine her at a future visit. Patient Instructions - Take the antibiotic Bactrim for 7 days to treat your bladder infection. - Take Pyridium to help with bladder irritation symptoms like burning. - Be aware that Pyridium will make your urine turn bright orange. - This is normal and the color will go away after you stop the medication. - You can continue taking your other regular medications with these new ones. - The swelling in your neck is not a cause for concern. - Your two new prescriptions were sent to the [facility] pharmacy at [address] [place] [address]. Medications: New sulfamethoxazole-trimethoprim 800-160 mg (Bactrim DS) 1 tab PO BID 14 tabs 0RF 7 days phenazopyridine (Pyridium) 200 mg PO TID 9 tabs 0RF 3 days
[2025-07-11 10:14] VITALS: BP 98/54
--- OUTSIDE RECORDS SUMMARY | 2025-07-11 13:17 | XMS_ITS | Encounter Summary ---
Author Organization [facility] Address [address] [place] [address] Phone Care Team Providers Care Human Anatomy Teacher Name Role Phone Otilia Coolara Celso CNM Unavailable Nerissa Herrmann CRYPTOGRAPHIC MACHINE OPERATOR Unavailable [phone] Randi Hernandez CRYPTOGRAPHIC MACHINE OPERATOR Unavailable Collette Rodarte MD Unavailable [phone] Rao Tidwell DO Unavailable Leilani Lazo MD Unavailable [phone] Patrick Sanderson MD Unavailable Hallie Carrillo MD Unavailable Elsy Mahmood MD Unavailable Constanza Rodriguez MD Unavailable [phone] Rao Tidwell DO Primary Care Provider [phone] Encounter Details Date Type Department Care Team (Late st Contact Info) Description 03/07/2019 Ancillary Orders Virtual Department [address] [place] [address] Rao Tidwell DO [address] [place], [place] [id number] Breast screening Social History Tobacco Use Types [...] There are scattered fibroglandular densities. POS - [id number] Narrative 05/05/2019 9:12 AM EDT EXAM: BI MAMMOGRAM SCREENING WITH TOMOSYNTHESIS WITH CAD (BILATERAL) HISTORY: Screening. * Annual Breast screening COMPARISON: Prior mammograms including 05/04/2018, 12/11/2016, 10/18/2015. TECHNIQUE: Digital breast tomosynthesis was performed in CC and MLO projections. Reconstructed 2-D C-views generated from the tomosynthesis images. Images interpreted in conjunction with R-2 Image Zanjero computer-aided detection (CAD). FINDINGS: BREAST COMPOSITION: There [...] There are scattered fibroglandular densities. POS - [id number] Rao Tidwell DO IMG MG EXAMS Final Result documented in this encounter Visit Diagnoses Diagnosis Breast screening Breast screening, unspecified Breast screening Breast screening, unspecified documented in this encounter Care Teams Human Anatomy Teacher Relationship Specialty Start Date End Date Rao Tidwell DO [address] [place] [address] PCP - General 07/16/17 Lydia Cool CNM [address] [place] [address] Historical LMR Provider 05/02/17 2 Nerissa Herrmann NP [address] [place] [address] Historical LMR Provider 05/02/17 Randi Hernandez NP [address] [place] [phone] Historical LMR Provider 05/02/17 2 Collette Rodarte MD [address] [place] [address] [place] [address] Historical LMR Provider 05/02/17 Rao Tidwell DO [address] [place] [address] Historical LMR Provider 05/02/17 Leilani Lazo MD [address] [place] [address] Historical LMR Provider 05/02/17 2 Patrick Sanderson MD [address] [address] Historical LMR Provider 05/02/17 Hallie Carrillo MD [address] [place] [phone] Historical LMR Provider 05/02/17 2 Elsy Mahmood MD [address] [address] Historical LMR Provider 05/02/17 07/20/21 Constanza Rodriguez MD [address] [place] [address] Historical LMR Provider 05/02/17 2 documented as of this encounter Additional Source Comments The information contained in this document represents components of the legal health record. It is not the complete legal health record.[facility]
--- OUTSIDE RECORDS SUMMARY | 2025-07-11 13:17 | XMS_ITS | Encounter Summary ---
Author Organization [facility] Address [address] [place] [address] Phone Care Team Providers Care Shade Bander Name Role Phone Lydia Cool CNM Unavailable Nerissa Herrmann BUMPER STRAIGHTENER Unavailable [phone] Randi Hernandez BUMPER STRAIGHTENER Unavailable Collette Rodarte MD Unavailable Rao Tidwell DO Unavailable Leilani Lazo MD Unavailable [phone] Patrick Sanderson MD Unavailable Hallie Carrillo MD Unavailable Elsy Mahmood MD Unavailable Constanza Rodriguez MD Unavailable [phone] Rao Tidwell DO Primary Care Provider [phone] Encounter Details Date Type Department Care Team (Late st Contact Info) Description 04/30/2021 Procedure Pass [facility], [address] [id number] Social History Tobacco Use Types Packs/Day Years [...] on filedocumented in this encounter Care Teams Shade Bander Relationship Specialty Start Date End Date Rao Tidwell DO [address] [place] [address] PCP - General 07/16/17 Lydia Cool CNM [address] [place] [address] Historical LMR Provider 05/02/17 2 Nerissa Herrmann, BUMPER STRAIGHTENER [address] [place] [address] [email or web address] Historical LMR Provider 05/02/17 Randi Hernandez BUMPER STRAIGHTENER [address] [place] [phone] Historical LMR Provider 05/02/17 2 Collette Rodarte MD [address] [place] [address], [address] [place] [address] Historical LMR Provider 05/02/17 Rao Tidwell DO [address] [place] [address] Historical LMR Provider 05/02/17 Leilani Lazo MD [address] [place] [address] Historical LMR Provider 05/02/17 2 Patrick Sanderson MD [address] [place] [address] [email or web address] Historical LMR Provider 05/02/17 Hallie Carrillo MD [address] [place] [phone] Historical LMR Provider 05/02/17 2 Elsy Mahmood MD [address] [place] [address] [email or web address] Historical LMR Provider 05/02/17 07/20/21 Constanza Rodriguez MD [address], [place] [address] Historical LMR Provider 05/02/17 2 documented as of this encounter Additional Source Comments The information contained in this document represents components of the legal health record. It is not the complete legal health record.[facility]
--- OUTSIDE RECORDS SUMMARY | 2025-07-11 13:17 | XMS_ITS | Encounter Summary ---
Author Organization [facility] Address [address] [place] [address] Phone Care Team Providers Care Outside Plant Technician Name Role Phone Lydia Cool CNM Unavailable Nerissa Herrmann COUPON MANIFEST CLERK Unavailable [phone] Randi Hernandez COUPON MANIFEST CLERK Unavailable Collette Rodarte MD Unavailable Rao Tidwell DO Unavailable Leilani Lazo MD Unavailable [phone] Patrick Sanderson MD Unavailable Hallie Carrillo MD Unavailable Elsy Mahmood MD Unavailable Constanza Rodriguez MD Unavailable [phone] Rao Tidwell DO Primary Care Provider Encounter Details Date Type Department Care Team (Latest Contact Info) Description 04/30/2021 Transcribe Orders Virtual Department [address] [place] [address] Rao Tidwell DO [address] [place] [address] Breast screening (Primary Dx) Social [...] unspecified documented in this encounter Care Teams Outside Plant Technician Relationship Specialty Start Date End Date Rao Tidwell DO [address] [place] [address] PCP - General 07/16/17 Lydia Cool CNM [address] [place] [address] Historical LMR Provider 05/02/17 2 Nerissa Herrmann NP [address] [place] [address] [email or web address] Historical LMR Provider 05/02/17 Randi Hernandez NP [address] [place] [phone] Historical LMR Provider 05/02/17 2 Collette Rodarte MD [address] [place] [address] Historical LMR Provider 05/02/17 Rao Tidwell DO [address] [place] [address] Historical LMR Provider 05/02/17 Leilani Lazo MD [address] [place] [address] Historical LMR Provider 05/02/17 2 Patrick Sanderson MD [address] [place] [address] Historical LMR Provider 05/02/17 Hallie Carrillo MD [address] [place] [phone] Historical LMR Provider 05/02/17 2 Elsy Mahmood MD [address] [place] [address] [email or web address] Historical LMR Provider 05/02/17 07/20/21 Constanza Rodriguez MD [address] [place] [phone] Historical LMR Provider 05/02/17 2 documented as of this encounter Additional Source Comments The information contained in this document represents components of the legal health record. It is not the complete legal health record.[facility]
--- OUTSIDE RECORDS SUMMARY | 2025-07-11 13:17 | XMS_ITS | Encounter Summary ---
Author Organization [facility] Address [address] [place], [place] [phone] Phone Care Team Providers Care Mass Communications Instructor Name Role Phone Lydia Cool CNM Unavailable Nerissa Herrmann COMPLAINT EVALUATION SUPERVISOR Unavailable [phone] Randi Hernandez COMPLAINT EVALUATION SUPERVISOR Unavailable Collette Rodarte MD Unavailable Rao Tidwell DO Unavailable Leilani Lazo MD Unavailable [phone] Patrick Sanderson MD Unavailable [phone] Hallie Carrillo MD Unavailable Elsy Mahmood MD Unavailable Constanza Rodriguez MD Unavailable [phone] Rao Tidwell DO Primary Care Provider Encounter Details Date Type Department Care Team (Late st Contact Info) Description 03/21/2020 Procedure Pass [facility], [address] [id number] Social History Tobacco Use Types Packs/Day Years [...] on filedocumented in this encounter Care Teams Mass Communications Instructor Relationship Specialty Start Date End Date Rao Tidwell DO [address] [place] [address] PCP - General 07/16/17 Lydia Cool CNM [address] [place] [address] Historical LMR Provider 05/02/17 2 Nerissa Herrmann NP [address] [place] [address] [email or web address] Historical LMR Provider 05/02/17 Randi Hernandez NP [address] [place] [phone] Historical LMR Provider 05/02/17 2 Collette Rodarte MD [address] [place] [address] Historical LMR Provider 05/02/17 Rao Tidwell DO [address] [place] [address] Historical LMR Provider 05/02/17 Leilani Lazo MD [address] [place] [address] Historical LMR Provider 05/02/17 2 Patrick Sanderson MD [address] [place] [address] [email or web address] Historical LMR Provider 05/02/17 Hallie Carrillo MD [address] [place], [place] Historical LMR Provider 05/02/17 2 Elsy Mahmood MD [address] [place] [address] [email or web address] Historical LMR Provider 05/02/17 07/20/21 Constanza Rodriguez MD [address], [place] [address] Historical LMR Provider 05/02/17 2 documented as of this encounter Additional Source Comments The information contained in this document represents components of the legal health record. It is not the complete legal health record.[facility]
--- OUTSIDE RECORDS SUMMARY | 2025-07-11 13:17 | XMS_ITS | Encounter Summary ---
Author Organization [facility] Address [address] [place] [address] Phone Care Team Providers Care Bluing Oven Tender Name Role Phone Nerissa Herrmann UTILITY WORKER WOOLEN MILL Unavailable [phone] Rao Tidwell DO Unavailable Patrick Sanderson MD Unavailable Rao Tidwell DO Primary Care Provider Encounter Details Date Type Department Care Team (Late st Contact Info) Description 05/13/2022 Procedure Pass [facility], [address] [address] Social History Tobacco Use Types Packs/Day Years [...] on filedocumented in this encounter Care Teams Bluing Oven Tender Relationship Specialty Start Date End Date Rao Tidwell DO [address] [place] [address] PCP - General 07/16/17 Nerissa Herrmann, UTILITY WORKER WOOLEN MILL [address] [place] [address] [email or web address] Historical LMR Provider 05/02/17 Rao Tidwell DO [address] [place] [address] Historical LMR Provider 05/02/17 Patrick Sanderson MD [address] [place] [address], [facility] [address] [place] [address] [email or web address] Historical LMR Provider 05/02/17 documented as of this encounter Additional Source Comments The information contained in this document represents components of the legal health record. It is not the complete legal health record.[facility]
--- OUTSIDE RECORDS SUMMARY | 2025-07-11 13:17 | XMS_ITS | Clinical Summary ---
Author Organization [facility] Address [address] [place] [address] Phone Care Team Providers Care Mold Finisher Name Role Phone Nerissa Herrmann NP Unavailable [phone] Rao Tidwell DO Unavailable [phone] Patrick Sanderson MD Unavailable [phone] Rao Tidwell DO Primary Care Provider Allergies Active Allergy Reactions Criticality Noted Date Comments Bee Venom Protein (Honey Bee) Unknown 2016 Oxycodone-Acetaminophen Dizziness 08/13/2016 Qpofwxlhc-Puplcyvaej-Qyefgt 05/27/20 23 Watermelon ONLY Shellfish Anaphylaxis High [...] SEE NARRATIVE - 04/24/2022 2:20 [place] [address] Makeup Instructor: Kelsea Mendoza MD CARDIOLOGY NURSE Cytology Report FINAL DIAGNOSIS A. PAP SMEAR [...] 52, 56, 58, 59, 66, 68) by [employer] Onclarity HR-HPV analysis. Clinical correlation is advised. This HPV test was performed at [facility], [address] [place] [address]. This test has been FDA approved for [facility]Path cervical cytology specimens. The accuracy and precision of this test for all other specimen sources has been verified in the Cytopathology Laboratory of the [facility] and has not been cleared or approved by the U.S. Food and Drug Administration. Clinical correlation is advised. CLINICAL HISTORY Date of Last Menstrual Period: Not Provided Menstrual History: Bleeding, Irregular Treatment History: LEEP: 2015 Other Clinical Conditions: Screening Pap SPECIMEN SOURCE A: PAP SMEAR (SUREPATH) CE Patient Name: VERONICA HUSTONDI : 1975 (Age: 46) Sex: F Institution: [facility] Location: [facility] Date of Collection: 04/17/2022 Date of Reported: 04/24/2022 14:20 Results to: Patrick Sanderson MD, BS Patrick Sanderson MD CYTOLOGY ORDERABLES Final Res ult SEE NARRATIVE from Last 3 Months or Most Recently Relevant to Health Maintenance Insurance AETNA O POS EPO AETNA HMO POS EPO AET HMO POS EPO AETNA HMO [facility] AETNA O POS EPO AETNA HMO POS EPO AETNA HMO POS EPO Care Teams Mold Finisher Relationship Specialty Start Date End Date Rao Tidwell DO [address] [place] [address] PCP - General 07/16/17 Nerissa Herrmann NP [address] [place] [address] [email or web address] Historical LMR Provider 05/02/17 Rao Tidwell DO [address] [place] [address] 164[address] Historical LMR Provider 05/02/17 Patrick Sanderson MD [address] [place] [address] [email or web address] Historical LMR Provider 05/02/17 Additional Source Comments The information contained in this document represents components of the legal health record. It is not the complete legal health record.[facility]
--- OUTSIDE RECORDS SUMMARY | 2025-07-11 13:17 | XMS_ITS | Encounter Summary ---
Author Organization [facility] Address [address] [place] [address] Phone Care Team Providers Care Mortgage Manager Name Role Phone Nerissa Herrmann NP Unavailable [phone] Rao Tidwell DO Unavailable [phone] Patrick Sanderson MD Unavailable [phone] Rao Tidwell DO Primary Care Provider Encounter Details Date Type Department Care Team (Late st Contact Info) Description 05/12/2023 Procedure Pass [facility], [facility] [address] [place] [address] Social History Tobacco Use Types Packs/Day Years [...] on filedocumented in this encounter Care Teams Mortgage Manager Relationship Specialty Start Date End Date Rao Tidwell DO [address] [place] [address] PCP - General 07/16/17 Nerissa Herrmann NP [address] [place] [address] [email or web address] Historical LMR Provider 05/02/17 Rao Tidwell DO [address] [place] [address] Historical LMR Provider 05/02/17 Patrick Sanderson MD [address] [place] [address] [email or web address] Historical LMR Provider 05/02/17 documented as of this encounter Additional Source Comments The information contained in this document represents components of the legal health record. It is not the complete legal health record.[facility]
--- OUTSIDE RECORDS SUMMARY | 2025-07-11 13:17 | XMS_ITS | Encounter Summary ---
Author Organization [facility] Address [address] [place] [address] [place] [address] Phone Care Team Providers Care Building Rigger Name Role Phone Grand, Nerissa Vaibhav BRIGHT Unavailable [phone] Rao Tidwell DO Unavailable Patrick Sanderson MD Unavailable [phone] Rao Tidwell DO Primary Care Provider Encounter Details Date Type Department Care Team (Latest Contact Info) Description 05/12/2023 Transcribe Orders Virtual Department [address] [place] [address] Rao Tidwell, [address] [place] [address] Breast screening (Primary Dx) Social History Tobacco [...] unspecified documented in this encounter Care Teams Building Rigger Relationship Specialty Start Date End Date Rao Tidwell DO [address] [place] [address] PCP - General 07/16/17 Nerissa Herrmann NP [address] [place] [address] [email or web address] Historical LMR Provider 05/02/17 Rao Tidwell DO [address] [place] [address] Historical LMR Provider 05/02/17 Patrick Sanderson MD [address] [place] [address] [email or web address] Historical LMR Provider 05/02/17 documented as of this encounter Additional Source Comments The information contained in this document represents components of the legal health record. It is not the complete legal health record.[facility]
--- OUTSIDE RECORDS SUMMARY | 2025-07-11 13:17 | XMS_ITS | Encounter Summary ---
Author Organization [facility] Address [address] [place] [address] Phone Care Team Providers Care Reproductive Endocrinologist Name Role Phone Nerissa Herrmann NP Unavailable [phone] Rao Tidwell DO Unavailable Patrick Sanderson MD Unavailable [phone] Rao Tidwell DO Primary Care Provider [phone] Encounter Details Date Type Department Care Team (Late st Contact Info) Description 04/27/2024 Procedure Pass [facility], [facility] [address] [place] [address] Social History Tobacco Use Types Packs/Day Years [...] on filedocumented in this encounter Care Teams Reproductive Endocrinologist Relationship Specialty Start Date End Date Rao Tidwell DO [address] [place] [address] PCP - General 07/16/17 Nerissa Herrmann NP [address] [place] [address] [email or web address] Historical LMR Provider 05/02/17 Rao Tidwell DO [address] [place] [address] Historical LMR Provider 05/02/17 Patrick Sanderson MD [address] [place] [address] [email or web address] Historical LMR Provider 05/02/17 documented as of this encounter Additional Source Comments The information contained in this document represents components of the legal health record. It is not the complete legal health record.[facility]
== END 2025-07-11 10:27 | disposition home or self-care (01) ==
LOC: HO.HMCSH 10:06
PROVIDERS: PCP Physician Assistant Medical; Visit Provider Internal Medicine
DX: Z13.9 Encounter for screening, unspecified (principal); N39.0 Urinary tract infection, site not specified

== ENCOUNTER → 2025-07-11 10:06 | Outpatient (BNVA) | payer OTHER, SELFPAY | PROVIDERS: PCP Physician Assistant Medical; Visit Provider Internal Medicine | DX: N39.0 Urinary tract infection, site not specified (principal); Z13.31 Encounter for screening for depression; Z13.39 Encounter for screening examination for other mental health and behavioral disorders | CPT/HCPCS: 81003; 96127 ==